=== PATIENT | male | born 1970 | race Caucasian/White ===

== ENCOUNTER 2016-11-02 03:28 | Inpatient (IN) | payer OTHER ==
[2016-11-02] VITALS (9 sets, daily range): BP systolic 125–159; BP diastolic 67–93; PULSE 76–99; RESP 14–18; TEMP 97.6–98.8; O2SAT 93–99
[~2016-11-02] VITALS: Ht 185.4 cm; Wt 64.3 kg
[~2016-11-02 03:28] MED LIST: CEPH500 PO; CLON.1 PO; HYDR-3580 PO; IBUP400 PO; LEVE500 PO; OXYC20 PO; PHEN100 PO; Z.0.WALKERFRONT
[2016-11-02] MEDS ORDERED: SODIUM CHLOR 0.9% 1000 ML INJ 1,000 ML IV SCH (03:36)
[2016-11-02] MEDS ORDERED: CEPH-460 PO (03:40)
[2016-11-02] MEDS ORDERED: DILA100C PO (03:40)
[2016-11-02] MEDS ORDERED: CLON0.1T PO (03:40)
[2016-11-02] MEDS ORDERED: SODIUM CHLORIDE 0.9% FLUSH 5 ML FLUSH IVF PRN (03:45)
--- NOTE | 2016-11-02 03:45 | PD ---
HPI Chief Complaint: Fall Time Seen by Provider: 03:36 Travel History International Travel<30 days: No Contact w/Intl Traveler<30days: No Traveled to known affect area: No History of Present Illness HPI 46-year-old male states he had one beer and had a trip and fall and the ambulance team picked him up off the road. He denies pain but does have blood coming from his right ear. History is limited from patient. PFSH Past Medical History Narrative Medical By records Diminished Hearing: No Seizures: Yes Past Surgical History Narrative Surgical By records Neurologic Surgery: Yes (CRANIOTOMY) Social History Narrative Social History by records Alcohol Use: Yes (3-4 DRINKS/day) Tobacco Use: Yes (1 PPD) Substance Use: No Allergies-Medications (Allergen,Severity, Reaction): Coded Allergies: No Known Allergies (Verified , 11/02/16) Reported Meds & Prescriptions Reported Meds & Active Scripts Active Reported Dilantin (Phenytoin Extended) 100 Mg Cap 300 Mg PO BID Clonidine (Clonidine HCl) 0.1 Mg Tab 0.1 Mg PO TID Keflex (Cephalexin) 500 Mg Cap 500 Mg PO Q8H Review of Systems ROS Limitations: Poor Historian Physical Exam Exam Limitations: Poor Historian Narrative General: 46 y/o patient in no apparent distress Skin: trauma noted with blood coming from right ear without obvious laceration Eyes: Pupils equal NECK: C-collar in place Cardiovascular: Regular rate and rhythm Respiratory: Normal respiratory effort noted, clear to auscultation bilaterally Abdomen: soft, nontender, nondistended Back: No step-offs, midline spine nontender with palpation with logroll Extremities: No pain over main joints Neuro: awake, alert, sensation and motor grossly intact Data Data Last Documented VS Vital Signs Date Time Temp Pulse Resp B/P Pulse Ox O2 Delivery O2 Flow Rate FiO2 11/02/16 03:32 98.0 99 18 148/93 96 Orders Basic Metabolic Panel (Bmp) (11/02/16 03:36) Complete Blood Count With Diff (11/02/16 03:36) Prothrombin Time / Inr (Pt) (11/02/16 03:36) Act Partial Throm Time (Ptt) (11/02/16 03:36) Type And Screen (11/02/16 03:36) Alcohol (Ethanol) (11/02/16 03:36) Chest, Single Ap (11/02/16 03:36) Pelvis, Ap Only (Routine) (11/02/16 03:36) Ct Brain W/O Iv Contrast(Rout) (11/02/16 03:36) Ct Cerv Spine W/O Contrast (11/02/16 03:36) Iv Access Insert/Monitor (11/02/16 03:36) Ecg Monitoring (11/02/16 03:36) Oximetry (11/02/16 03:36) Sodium Chlor 0.9% 1000 Ml Inj (Ns 1000 M (11/02/16 03:36) Sodium Chloride 0.9% Flush (Ns Flush) (11/02/16 03:45) Consult Neurosurgery (11/02/16 ) (Hub Use Only)Inp Phy Cons/Ref (11/02/16 ) Admit Order (Ed Use Only) (11/02/16 05:19) Labs Laboratory Tests Test 11/02/16 03:45 White Blood Count 4.6 TH/MM3 Red Blood Count 4.07 MIL/MM3 Hemoglobin 14.1 GM/DL Hematocrit 40.2 % Mean Corpuscular Volume 98.8 FL Mean Corpuscular Hemoglobin 34.7 PG Mean Corpuscular Hemoglobin 35.1 % Concent Red Cell Distribution Width 14.3 % Platelet Count 171 TH/MM3 Mean Platelet Volume 7.7 FL Neutrophils (%) (Auto) 44.6 % Lymphocytes (%) (Auto) 31.5 % Monocytes (%) (Auto) 18.4 % Eosinophils (%) (Auto) 3.3 % Basophils (%) (Auto) 2.2 % Neutrophils # (Auto) 2.1 TH/MM3 Lymphocytes # (Auto) 1.5 TH/MM3 Monocytes # (Auto) 0.9 TH/MM3 Eosinophils # (Auto) 0.2 TH/MM3 Basophils # (Auto) 0.1 TH/MM3 CBC Comment DIFF FINAL Differential Comment Prothrombin Time 10.0 SEC Prothromb Time International 0.9 RATIO Ratio Activated Partial 25.7 SEC Thromboplast Time Sodium Level 139 MEQ/L Potassium Level 3.7 MEQ/L Chloride Level 101 MEQ/L Carbon Dioxide Level 28.9 MEQ/L Anion Gap 9 MEQ/L Blood Urea Nitrogen 5 MG/DL Creatinine 0.64 MG/DL Estimat Glomerular Filtration 135 ML/MIN Rate Random Glucose 88 MG/DL Calcium Level 8.1 MG/DL Ethyl Alcohol Level 333 MG/DL MDM Medical Decision Making Medical Screen Exam Complete: Yes Emergency Medical Condition: Yes Medical Record Reviewed: Yes (past history confirmed) Interpretation(s) CBC & BMP Diagram 11/02/16 03:45 Last 24 hours Impressions Pelvis X-Ray 11/02/16335 Signed Impressions: Service Date/Time: October 03:56 - CONCLUSION: Negative trauma study. Pedro Pablo Lion MD Head CT 11/02/16335 Signed Impressions: Service Date/Time: October 03:47 - CONCLUSION: 1. New small area of high density hemorrhage in the left parietal lobe with no mass effect. 2. Post surgical changes and encephalomalacia in the right frontal and left temporal lobe. Pedro Pablo Lion MD Chest X-Ray 11/02/16335 Signed Impressions: Service Date/Time: October 03:52 - CONCLUSION: No acute disease. Pedro Pablo Lion MD Cervical Spine CT 11/02/16335 Signed Impressions: Service Date/Time: October 03:47 - CONCLUSION: 1. No acute fracture. 2. Stable mild retrolisthesis of C5 on C6 with degenerative disc change at this level. Pedro Pablo Lion MD Differential Diagnosis Intracranial bleed, skull fracture, strain Narrative Course Will check blood work, trauma imaging and reevaluate ed workup with clinical basilar skull fracture with bleeding from right ear, small bleed on CT brain will discuss with neurosurgery Patient updated and agrees to admission Physician Communication Physician Communication dr [facility] and will follow as consult dr benítez agrees to admit Diagnosis Primary Impression: Intracranial hemorrhage Additional Impressions: Basilar skull fracture Qualified Code: S02.101A - Closed fracture of right side of base of skull, initial encounter Alcohol intoxication Qualified Code: F10.120 - Alcohol intoxication, uncomplicated Admitting Information Admitting Physician Requests: Admit Aby Higginbotham MD Nov 02, 2016 03:45
--- NOTE | 2016-11-02 04:06 | RADRPT ---
EXAM DATE/TIME: 11/02/2016 03:47 [facility] COMPARISON: CT BRAIN W/O CONTRAST, March 19, 2016, 8:31. INDICATIONS : Fell backwards, cephalgia.. History of intracranial hemorrhage 6 months ago. RADIATION DOSE: 32.33 CTDIvol (mGy) MEDICAL HISTORY : Seizures. SURGICAL HISTORY : Craniotomy. ENCOUNTER: Initial ACUITY: 1 day PAIN SCALE: 1/10 LOCATION: occipital TECHNIQUE: Multiple contiguous axial images were obtained of the head. Using automated exposure control and adjustment of the mA and/or kV according to patient size, radiation dose was kept as low as reasonably achievable to obtain optimal diagnostic quality images. FINDINGS: CEREBRUM: The ventricles are normal for age. No evidence of midline shift, mass lesion, or acute infarction. On image #7 there is a small focal area of high density apparent intraparenchymal hemorr colt in the left temporal lobe measuring approximately 8 x 8 mm in size. There is no edema or mass ef fect. There are stable areas of encephalomalacia in the right frontal and left temporal lobes. The pr evious noted areas of hemorrhage have resolved. No extra-axial fluid collections are seen. POSTERIOR FOSSA: The cerebellum and brainstem are intact. The 4th ventricle is midline. The cer ebellopontine angle is unremarkable. EXTRACRANIAL: The visualized portion of the orbits is intact. SKULL: The calvaria is intact. No evidence of skull fracture. There is soft tissue swelling over the right parietal bone. Postsurgical changes are noted status post right temporal parietal cranioto my. CONCLUSION: 1. New small area of high density hemorrhage in the left parietal lobe with no mass effect. 2. Post surgical changes and encephalomalacia in the right frontal and left temporal lobe. Pedro Pablo Lion MD on November 02, 2016 at 3:59 Board Certified Radiologist. This report was verified electronically.
--- NOTE | 2016-11-02 04:09 | RADRPT ---
EXAM DATE/TIME: 11/02/2016 03:47 [facility] COMPARISON: CT CERVICAL SPINE W/O CONTRAST, March 15, 2016, 21:41. INDICATIONS : Fell backwards, neck pain. RADIATION DOSE: 20.45 CTDIvol (mGy) MEDICAL HISTORY : Seizures. SURGICAL HISTORY : Craniotomy. ENCOUNTER: Initial ACUITY: 1 day PAIN SCALE: 1/10 LOCATION: neck TECHNIQUE: Volumetric scanning of the cervical spine was performed. Multiplanar reconstructions i n the sagittal, coronal and oblique axial planes were performed. Using automated exposure control a nd adjustment of the mA and/or kV according to patient size, radiation dose was kept as low as reason ably achievable to obtain optimal diagnostic quality images. FINDINGS: The sagittal reconstructions demonstrate that the vertebral bodies are intact and there is normal pre vertebral soft tissues. The dens is intact and there is a normal atlantoaxial relationship. There is mild retrolisthesis of C5 on C6 again noted approximately 3 mm. The axial images demonstrate that the vertebral bodies and posterior elements are intact. The soft ti ssues are within normal limits. There is no evidence of acute fracture or malalignment. CONCLUSION: 1. No acute fracture. 2. Stable mild retrolisthesis of C5 on C6 with degenerative disc change at this level. Pedro Pablo Lion MD on November 02, 2016 at 4:05 Board Certified Radiologist. This report was verified electronically.
[2016-11-02 04:18] LABS: AUTOMATED NEUTROPHIL # 2.1 TH/MM3 (1.8-7.7); BASOPHIL # 0.1 TH/MM3 (0-0.2); BASOPHIL % 2.2 % (0.0-2.0); EOSINOPHIL # 0.2 TH/MM3 (0-0.4); EOSINOPHIL % 3.3 % (0.0-4.0); HEMATOCRIT 40.2 % (39.0-51.0); HEMO FLAGS DIFF FINAL; LYMPH % 31.5 % (9.0-44.0); LYMPHOCYTE # 1.5 TH/MM3 (1.0-4.8); MEAN CELL VOLUME 98.8 FL (80.0-100.0); MEAN CORPUSCULAR HEMOGLOBIN 34.7 PG (27.0-34.0); MEAN CORPUSCULAR HGB CONC 35.1 % (32.0-36.0); MONO % 18.4 % (0.0-8.0); NEUT % 44.6 % (16.0-70.0); PLATELET COUNT 171 TH/MM3 (150-450); RED BLOOD COUNT 4.07 MIL/MM3 (4.50-5.90); RED CELL DISTRIBUTION WIDTH 14.3 % (11.6-17.2); WHITE BLOOD COUNT 4.6 TH/MM3 (4.0-11.0)
[2016-11-02 04:30] LABS: APTT (PATIENT) 25.7 SEC (24.3-30.1); INTERNATIONAL NORMALIZED RATIO 0.9 RATIO
[2016-11-02 04:31] LABS: BICARBONATE 28.9 MEQ/L (21.0-32.0); POTASSIUM 3.7 MEQ/L (3.5-5.1)
--- NOTE | 2016-11-02 04:46 | RADRPT ---
EXAM DATE/TIME: 11/02/2016 03:52 [facility] COMPARISON: CHEST SINGLE AP, March 16, 2016, 5:36. INDICATIONS : Patient states he fell, syncope. MEDICAL HISTORY : None. SURGICAL HISTORY : None. ENCOUNTER: Initial ACUITY: 1 day PAIN SCORE: 0/10 LOCATION: Bilateral chest FINDINGS: A single view of the chest demonstrates the lungs to be symmetrically aerated without evidence of mas s, infiltrate or effusion. The cardiomediastinal contours are unremarkable. Osseous structures are intact. CONCLUSION: No acute disease. Pedro Pablo Lion MD on November 02, 2016 at 4:44 Board Certified Radiologist. This report was verified electronically.
--- NOTE | 2016-11-02 04:47 | RADRPT ---
EXAM DATE/TIME: 11/02/2016 03:56 [facility] COMPARISON: No previous studies available for comparison. INDICATIONS : Patient states he fell, pelvic pain. MEDICAL HISTORY : None. SURGICAL HISTORY : None. ENCOUNTER: Initial ACUITY: 1 day PAIN SCORE: 0/10 LOCATION: Bilateral Pelvis FINDINGS: A single frontal view of the pelvis demonstrates no evidence of fracture. The bony pelvic ring is in tact. Bony mineralization is normal. The soft tissues are intact. CONCLUSION: Negative trauma study. Pedro Pablo Lion MD on November 02, 2016 at 4:45 Board Certified Radiologist. This report was verified electronically.
[2016-11-02] MEDS ORDERED: ONDANSETRON HCL 4 MG/2 ML VIAL IVP PRN (07:15)
[2016-11-02] MEDS ORDERED: SODIUM CHLORIDE 0.9% FLUSH 5 ML FLUSH FLUSH PRN (07:15)
[2016-11-02] MEDS ORDERED: LORazepam 2 MG/ML VIAL IV PUSH PRN ×7 (07:15→17:00)
[2016-11-02] MEDS ORDERED: LORazepam 1 MG TAB PO PRN ×2 (07:15→13:45)
[2016-11-02] MEDS ORDERED: NALOXONE HCL 0.4 MG/ML AMP IV PRN (07:15)
[2016-11-02] MEDS ORDERED: FLUMAZENIL 1 MG/10 ML VIAL IV PUSH PRN ×2 (07:15→13:45)
--- NOTE | 2016-11-02 08:24 | HHI.HP ---
HPI Service [facility] Primary Care Physician No Primary Care Physician Admission Diagnosis intracranial bleed, alcohol intoxication Diagnoses: Chief Complaint: fall, headache, bleeding from right ear Travel History International Travel<30 Days: No Contact w/Intl Traveler <30 Da: No Traveled to Known Affected Are: No History of Present Illness 46 yo male with PMH of seizures, EtOH use, noncompliant with meds and follow up says due to lack of insurance. States he had a beer and a shot od hard liquer last night and on the way home he did fall on the street. He did manage to call 911 and paramedics came. Says he did not lose consciousness during or after the incident, no loss of bladder or bowels. Says he had similar previous episodes, one time years ago he did fall and had a large right side laceration. Denies tremors/ seizure activity. No lightheadedness, palpitations, n/v/d/c. Says paramedics told him he is bleeding from his right ear. Says she does have a h/o seizure, takes meds and says he is fairly compliant, however he doesn't have insurance and runs out of meds. No change in vision sensory or motor deficit. Note patient has a EtOH odor breath. Review of Systems Constitutional: DENIES: Fever, Chills, Change in appetite Endocrine: DENIES: Heat/cold intolerance Eyes: DENIES: Blurred vision, Eye pain Ears, nose, mouth, throat: DENIES: Tinnitus, Hearing loss, Vertigo, Nasal discharge, Oral lesions, Throat pain, Hoarseness, Ear Pain, Running Nose, Epistaxis, Sinus Pain, Toothache, Odynophagia Respiratory: DENIES: Apneas, Cough, Snoring, Wheezing, Hemoptysis, Sputum production, Shortness of breath Cardiovascular: DENIES: Chest pain, Palpitations, Syncope, Dyspnea on Exertion , PND, Lower Extremity Edema, Orthopnea, Claudication Gastrointestinal: DENIES: Abdominal pain, Black stools, Bloody stools, Constipation, Diarrhea, Nausea, Vomiting, Difficulty Swallowing, Anorexia Genitourinary: DENIES: Sexual dysfunction, Urinary frequency, Urinary incontinence, Urgency, Hematuria, Dysuria, Nocturia, Penile Discharge, Testicular Pain, Testicular Swelling Musculoskeletal: DENIES: Joint pain, Muscle aches, Stiffness, Joint Swelling, Back pain, Neck pain Integumentary: DENIES: Rash Neurologic: DENIES: Abnormal gait, Headache, Localized weakness, Paresthesias, Seizures, Speech Problems, Tremor, Poor Balance Psychiatric: DENIES: Anxiety, Depression Past Family Social History Past Medical History seizure, multiple falls EtOH use Past Surgical History Right scalp laceration repair Reported Medications Reported Meds & Active Scripts Active Reported Dilantin (Phenytoin Extended) 100 Mg Cap 300 Mg PO BID Clonidine (Clonidine HCl) 0.1 Mg Tab 0.1 Mg PO TID Keflex (Cephalexin) 500 Mg Cap 500 Mg PO Q8H Allergies: Coded Allergies: No Known Allergies (Verified , 11/02/16) Family History Parents and siblings alive and healthy Social History Tobacco use 1/2 PPD "since the [place] war" EtOH 2-3 beers occasional hard liquer Denies illicit drug use Physical Exam Vital Signs Vital Signs Date Time Temp Pulse Resp B/P Pulse Ox O2 Delivery O2 Flow Rate FiO2 11/02/16 06:32 97 14 125/71 95 Room Air 11/02/16 03:32 98.0 99 18 148/93 96 Physical Exam GENERAL: This is a well-nourished, well-developed patient, in no apparent distress. SKIN: No rashes, ecchymoses or lesions. Cool and dry. HEAD: Atraumatic. Normocephalic. No temporal or scalp tenderness. EYES: Pupils equal round and reactive. Extraocular motions intact. No scleral icterus. No injection or drainage. ENT: Nose without bleeding, purulent drainage or septal hematoma. Throat without erythema, tonsillar hypertrophy or exudate. Uvula midline. Airway patent. NECK: Trachea midline. No JVD or lymphadenopathy. Supple, nontender, no meningeal signs. CARDIOVASCULAR: Regular rate and rhythm without murmurs, gallops, or rubs. RESPIRATORY: Clear to auscultation. Breath sounds equal bilaterally. No wheezes , rales, or rhonchi. GASTROINTESTINAL: Abdomen soft, non-tender, nondistended. No hepato-splenomegaly , or palpable masses. No guarding. MUSCULOSKELETAL: Extremities without clubbing, cyanosis, or edema. No joint tenderness, effusion, or edema noted. No calf tenderness. Negative Homans sign bilaterally. NEUROLOGICAL: Awake and alert. Cranial nerves II through XII intact. Motor and sensory grossly within normal limits. Five out of 5 muscle strength in all muscle groups. Normal speech. Laboratory Laboratory Tests Test 11/02/16 03:45 White Blood Count 4.6 Red Blood Count 4.07 Hemoglobin 14.1 Hematocrit 40.2 Mean Corpuscular Volume 98.8 Mean Corpuscular Hemoglobin 34.7 Mean Corpuscular Hemoglobin 35.1 Concent Red Cell Distribution Width 14.3 Platelet Count 171 Mean Platelet Volume 7.7 Neutrophils (%) (Auto) 44.6 Lymphocytes (%) (Auto) 31.5 Monocytes (%) (Auto) 18.4 Eosinophils (%) (Auto) 3.3 Basophils (%) (Auto) 2.2 Neutrophils # (Auto) 2.1 Lymphocytes # (Auto) 1.5 Monocytes # (Auto) 0.9 Eosinophils # (Auto) 0.2 Basophils # (Auto) 0.1 CBC Comment DIFF FINAL Differential Comment Prothrombin Time 10.0 Prothromb Time International 0.9 Ratio Activated Partial 25.7 Thromboplast Time Sodium Level 139 Potassium Level 3.7 Chloride Level 101 Carbon Dioxide Level 28.9 Anion Gap 9 Blood Urea Nitrogen 5 Creatinine 0.64 Estimat Glomerular Filtration 135 Rate Random Glucose 88 Calcium Level 8.1 Ethyl Alcohol Level 333 Result Diagram: 11/02/1634411/02/16344 Imaging Last Impressions Pelvis X-Ray 11/02/16335 Signed Impressions: Service Date/Time: October 03:56 - CONCLUSION: Negative trauma study. Pedro Pablo Lion MD Head CT 11/02/16335 Signed Impressions: Service Date/Time: October 03:47 - CONCLUSION: 1. New small area of high density hemorrhage in the left parietal lobe with no mass effect. 2. Post surgical changes and encephalomalacia in the right frontal and left temporal lobe. Pedro Pablo Lion MD Chest X-Ray 11/02/16335 Signed Impressions: Service Date/Time: October 03:52 - CONCLUSION: No acute disease. Pedro Pablo Lion MD Cervical Spine CT 11/02/16335 Signed Impressions: Service Date/Time: October 03:47 - CONCLUSION: 1. No acute fracture. 2. Stable mild retrolisthesis of C5 on C6 with degenerative disc change at this level. Pedro Pablo Lion MD Assessment and Plan Assessment and Plan 46 yo male with PMH of seizure, multiple falls, EtOH use Fall Right Otorrhagia Left parietal lobe with small hemorrhage H/o seizures taking dilantin at home CT head: 1. New small area of high density hemorrhage in the left parietal lobe with no mass effect. 2. Post surgical changes and encephalomalacia in the right frontal and left temporal lobe. Consult Dr Boyer, neurosurgery Check carotid US Check 2D ECHO Check EEG Start CIWA protocol Check dilantin level DVT ppx with SCD/TEDs , chemical ppx CI as patient with IC Hgg Code Status full Discussed Condition With patient, nurse, ED physician Physician Certification 2 Midnight Certification Type: Admission for Inpatient Services Order for Inpatient Services The services are ordered in accordance with Medicare regulations or non- Medicare payer requirements, as applicable. In the case of services not specified as inpatient-only, they are appropriately provided as inpatient services in accordance with the 2-midnight benchmark. Estimated LOS (days): 3 days is the estimated time the patient will need to remain in the hospital, assuming treatment plan goals are met and no additional complications. Post-Hospital Plan: Home Chanell Worthy MD Nov 02, 2016 08:24
[2016-11-02] MEDS ORDERED: SODIUM CHLORIDE 0.9% FLUSH 5 ML FLUSH FLUSH SCH (09:00)
[2016-11-02] MEDS: SODIUM CHLORIDE 0.9% FLUSH 5 ML FLUSH IV FLUSH SCH ×2 (09:46→21:00)
[2016-11-02] MEDS: THIAMINE HCL 100 MG TAB PO SCH (09:48)
--- NOTE | 2016-11-02 09:54 | PD.CONS ---
(Ellen Gaona) HPI Consult Requested By Dr. Higginbotham Reason for Consult Intracranial bleed, basal skull fracture Primary Care Physician No Primary Care Physician History of Present Illness Mr. Blake is a 46-year-old male who presents to [facility] ED following a fall. Apparently he was drinking last night and fell. He was reported to had called EMS and was found to be bleeding from the right ear. He denies loss of consciousness, tongue biting, seizure like activities, or loss of bladder control. He does have a history of seizures and is on Dilantin. A CT of the brain shows an acute left temporal contusion. He complains of some headaches. He denies focal weakness, double vision, sensory loss, vomiting. Toxicology shows a high alcohol level of 333. Neurosurgical evaluation was requested for evaluation of intracerebral hemorrhage. (Ellen Gaona) Review of Systems Constitutional: DENIES: Fever, Chills Eyes: DENIES: Vision loss Cardiovascular: DENIES: Chest pain Genitourinary: DENIES: Urinary incontinence Musculoskeletal: DENIES: Neck pain Neurologic: COMPLAINS OF: Headache, DENIES: Seizures (Ellen Goana) Past Family Social History Allergies: Coded Allergies: No Known Allergies (Verified , 11/02/16) Past Medical History seizures Hypertension Past Surgical History remote right craniotomy per CT Head results Reported Medications Dilantin (Phenytoin Extended) 100 Mg Cap 300 Mg PO BID Clonidine (Clonidine HCl) 0.1 Mg Tab 0.1 Mg PO TID Keflex (Cephalexin) 500 Mg Cap 500 Mg PO Q8H Active Ordered Medications Current Medications Medications (Trade) Dose Ordered Sig/Marely Route PRN Reason Start Time Stop Time Status Last Admin Dose Admin IV Flush (NS Flush) 2 ml UNSCH PRN FLUSH FLUSH AFTER USING IV ACCESS 11/02/16 07:15 IV Flush (NS Flush) 2 ml BID FLUSH 11/02/16 09:00 11/02/16 09:45 Ondansetron HCl (Zofran Inj) 4 mg Q6H PRN IVP NAUSEA OR VOMITING 12/29/16 07:15 Naloxone HCl (Narcan Inj) 0.4 mg UNSCH PRN IV SEE LABEL COMMENTS 11/02/16 07:15 IV Flush (NS Flush) 2 ml UNSCH PRN IV FLUSH FLUSH AFTER USING IV ACCESS 11/02/16 07:15 IV Flush (NS Flush) 2 ml BID IV FLUSH 11/02/16 09:00 11/02/16 09:46 Flumazenil (Romazicon Inj) 0.2 mg Q1M PRN IV PUSH SEE LABEL COMMENTS 11/02/16 07:15 Lorazepam (Ativan) 1 mg Q4H PRN PO CIWA 8 - 10 11/02/16 07:15 Lorazepam (Ativan Inj) 1 mg Q4H PRN IV PUSH CIWA 8 - 10 11/02/16 07:15 Lorazepam (Ativan) 2 mg Q2H PRN PO CIWA 11-14 11/02/16 07:15 Lorazepam (Ativan Inj) 2 mg Q2H PRN IV PUSH CIWA 11-14 11/02/16 07:15 Lorazepam (Ativan Inj) 2 mg Q1H PRN IV PUSH CIWA 15-20 11/02/16 07:15 Lorazepam (Ativan Inj) 2 mg Q15M PRN IV PUSH CIWA > 20 11/02/16 07:15 Thiamine HCl (Vitamin B1) 100 mg DAILY PO 11/02/16 09:00 11/02/16 09:48 Family History Noncontributory Social History Tobacco 1/2 PPD EtOH abuse denies illicit drug use (Ellen Gaona) Physical Exam Vital Signs Vital Signs Date Time Temp Pulse Resp B/P Pulse Ox O2 Delivery O2 Flow Rate FiO2 11/02/16 07:00 98.4 88 16 134/77 99 Room Air 11/02/16 07:00 Room Air 11/02/16 06:32 97 14 125/71 95 Room Air 11/02/16 03:32 98.0 99 18 148/93 96 Physical Exam Mr. Liao is alert, oriented to name and place. Follows commands. Cranial nerve examination demonstrates the pupils to be equal, round, and reactive to light. Extra-ocular movements are intact. Facial motor are normal and symmetrical. The uvula is midline and elevates symmetrically with the soft palate. Sternocleidomastoid and trapezius muscles have normal and symmetrical strength. Old dried blood noted in right ear, no active drainage seen. Neck is soft and supple. Cervical spine has good range of motion in anterior flexion, extension, lateral bending, and rotation with mild discomfort. Muscle testing reveals normal bulk and tone overall without rigidity, spasticity , fasciculations, or atrophy. 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 In the lower extremities, strength is 5/5 in both iliopsoas, quadriceps, hamstrings, plantar flexion, dorsiflexion. Sensory examination is intact to light touch in both the upper and lower extremities, symmetrically. Deep tendon reflexes are 2+ and symmetrical in the biceps, triceps, and brachioradialis, bilaterally, in the upper extremities. In the lower extremities , the patellar and Achilles are 2+, bilaterally. There is a bilateral plantar flexion response. Hoffmanns sign is negative. There is no clonus or other abnormal reflexes noted. Cerebellar examination is intact to [id number] test. Laboratory Laboratory Tests Test 11/02/16 11/02/16 03:45 07:36 White Blood Count 4.6 Red Blood Count 4.07 Hemoglobin 14.1 Hematocrit 40.2 Mean Corpuscular Volume 98.8 Mean Corpuscular Hemoglobin 34.7 Mean Corpuscular Hemoglobin 35.1 Concent Red Cell Distribution Width 14.3 Platelet Count 171 Mean Platelet Volume 7.7 Neutrophils (%) (Auto) 44.6 Lymphocytes (%) (Auto) 31.5 Monocytes (%) (Auto) 18.4 Eosinophils (%) (Auto) 3.3 Basophils (%) (Auto) 2.2 Neutrophils # (Auto) 2.1 Lymphocytes # (Auto) 1.5 Monocytes # (Auto) 0.9 Eosinophils # (Auto) 0.2 Basophils # (Auto) 0.1 CBC Comment DIFF FINAL Differential Comment Prothrombin Time 10.0 Prothromb Time International 0.9 Ratio Activated Partial 25.7 Thromboplast Time Sodium Level 139 Potassium Level 3.7 Chloride Level 101 Carbon Dioxide Level 28.9 Anion Gap 9 Blood Urea Nitrogen 5 Creatinine 0.64 Estimat Glomerular Filtration 135 Rate Random Glucose 88 Calcium Level 8.1 Ethyl Alcohol Level 333 Blood Type B NEGATIVE Antibody Screen NEGATIVE Blood Bank Comment (Ellen Gaona) Result Diagram: 11/02/1634411/02/16344 Imaging Last Impressions Pelvis X-Ray 11/02/16335 Signed Impressions: Service Date/Time: October 03:56 - CONCLUSION: Negative trauma study. Pedro Pablo Lion MD Head CT 11/02/16335 Signed Impressions: Service Date/Time: October 03:47 - CONCLUSION: 1. New small area of high density hemorrhage in the left parietal lobe with no mass effect. 2. Post surgical changes and encephalomalacia in the right frontal and left temporal lobe. Pedro Pablo Lion MD Chest X-Ray 11/02/16335 Signed Impressions: Service Date/Time: October 03:52 - CONCLUSION: No acute disease. Pedro Pablo Lion MD Cervical Spine CT 11/02/16335 Signed Impressions: Service Date/Time: October 03:47 - CONCLUSION: 1. No acute fracture. 2. Stable mild retrolisthesis of C5 on C6 with degenerative disc change at this level. Pedro Pablo Lion MD (Ellen Gaona) Attending Statement Neuro. I have reviewed his clinical and radiological findings. Start neuro checks in a serial fashion. A placement of a ICP monitoring is not indicated at this time Recommend to repeat the CT of the brain in 24 hours ETOH. counseled Respiratory. Aggressive pulmonary toilette, nasotracheal suction, and breathing treatments with nebulizers. PT and OT evaluation Nutrition. NPO Hx Seizures. Continue anticonvulsants. Check dilantin level Renal. monitor closely urine output, BUN and creatinine Endocrine. Monitor serial Acu checks and SSI as needed in detail ID monitor for signs of infection Protonix for stress ulcer prophylaxis Jean hose and SCD's for DVT prophylaxis (Narayan Boyer MD) Ellen Gaona Nov 02, 2016 09:54 Narayan Boyer MD Nov 02, 2016 18:03
[2016-11-02] MEDS ORDERED: SODIUM CHLORIDE 0.9% FLUSH 5 ML FLUSH IV FLUSH PRN (13:45)
[2016-11-02] MEDS ORDERED: LORazepam 2 MG TAB PO PRN (13:45)
[2016-11-02] MEDS ORDERED: cloNIDine HCL 0.1 MG TAB PO PRN (13:45)
[2016-11-02] MEDS ORDERED: PHENYTOIN SODIUM 100 MG CAP PO ONE (15:45)
--- NOTE | 2016-11-02 16:16 | RADRPT ---
EXAM DATE/TIME: 11/02/2016 16:01 [facility] COMPARISON: CT BRAIN W/O CONTRAST, November 02, 2016, 3:47. INDICATIONS : Follow-up intracranial bleed, altered mental status and seizure. RADIATION DOSE: 35.45 CTDIvol (mGy) MEDICAL HISTORY : Seizures. SURGICAL HISTORY : Craniotomy. ENCOUNTER: Subsequent ACUITY: 1 day PAIN SCALE: Non-responsive LOCATION: cranial TECHNIQUE: Multiple contiguous axial images were obtained of the head. Using automated exposure control and adj ustment of the mA and/or kV according to patient size, radiation dose was kept as low as reasonably a chievable to obtain optimal diagnostic quality images. FINDINGS: The cuboid products in the left middle cranial fossa that are either within or adjacent to the left t emporal lobe are stable. However, there are increased blood products along the left tentorium cerebel li and there are new acute blood products along the interhemispheric fissure posteriorly measuring up to a maximal thickness of 6 mm. There is a possible small left frontal subdural hematoma measuring 2 mm in maximal thickness. Stable encephalomalacia is present within the left temporal lobe and right frontal lobe. No midline shift or herniation is present. Ventricles are stable and normal in size. Th ere has been prior right frontal craniotomy. Stable right posterior scalp soft tissue swelling. CONCLUSION: 1. New subdural blood products are present along the interhemispheric fissure and along the left tent orium cerebelli. The left temporal region blood products in the middle cranial fossa are stable and c ould be either intraparenchymal or extra-axial. 2. Possible small left frontal subdural hematoma measuring 2 mm in maximal thickness. Overall, there is no midline shift or herniation. Syd Scott MD on November 02, 2016 at 16:09 Board Certified Radiologist. This report was verified electronically.
[2016-11-02] MEDS ORDERED: FOSPHENYTOIN INJ 1,000 MGPE in SODIUM CHLORIDE 0.9% INJ 50 ML IV ONE (18:00)
[2016-11-02] MEDS: cloNIDine HCL 0.1 MG TAB PO SCH (18:13)
--- NOTE | 2016-11-02 18:37 | MB ---
cc: UDAY BALLARD DATE OF CONSULTATION: 11/02/2016. REASON FOR CONSULTATION: Seizure. HISTORY OF PRESENT ILLNESS: Mr. Hammond is a 46-year-old man who has a history of seizures in the past, alcohol abuse and apparently noncompliant with medications. He takes Dilantin at home but states he has been missing doses. Last night he was drinking heavily. He fell on the street and was brought to the hospital by the paramedics. He was found to have on CT scan, a subdural hematoma along the inter-hemispheric fissure, left tentorium cerebella, left temporal region and the middle cranial fossa as well as small left frontal subdural hematoma measuring 2 mm with no mass effect. CT scan also showed left parietal hematoma. The patient had a witnessed generalized tonic clonic seizure her in the emergency room today. His dilantin level on admission was 1.8. NEUROLOGICAL EXAMINATION: VITAL SIGNS: Blood pressure is 129/67, pulse 76, respirations 16, temperature 98 degrees. HIGHER CORTICAL FUNCTIONS: He is postictal at the present time and very lethargic but arousable, disoriented, follows simple commands. CRANIAL NERVES: The pupils are 2 mm symmetric and reactive. Extraocular movements are intact. MOTOR: On motor exam, he has no focal deficits but he has generalized weakness. LABS: Dilantin level 1.8. Alcohol level 333. White count 4600, hemoglobin 14.1, hematocrit 40%, platelet count 171,000. PT 10. INR 0.9. APTT 25.7. Sodium is 139, potassium 3.7, chloride 101, carbon dioxide 28.9, BUN is 5, creatinine 0.64, GFR is 135, glucose 88. IMPRESSION: 1. Posttraumatic subdural hematoma as well as what appears to be left parietal contusion. 2. Seizure disorder and recurrent seizures. Subtherapeutic dilantin. RECOMMENDATIONS: 1. I will start the patient on Cerebyx after giving a loading dose of 1000 [address] him under seizure precautions. 3. Use PRN Ativan for any recurrent seizures. 4. Obtain an EEG. MD SATURNINO Griggs/BENITA /4:56 PM 6:30 PM
[2016-11-02] MEDS ORDERED: SODIUM CHLORIDE 0.9% FLUSH 5 ML FLUSH IV FLUSH SCH (21:00)
[2016-11-02] MEDS ORDERED: RANITIDINE HCL 150 MG TAB PO SCH (21:00)
[2016-11-02] MEDS ORDERED: PHENYTOIN SODIUM 100 MG CAP PO SCH (21:00)
[2016-11-02] MEDS: FOSPHENYTOIN SODIUM 100 MG PE/2 ML VIAL IV SCH (22:10)
[2016-11-03] VITALS (8 sets, daily range): BP systolic 114–124; BP diastolic 74–87; PULSE 75–80; RESP 14–18; TEMP 97.2–99.2; O2SAT 94–97
[2016-11-03] MEDS: FOSPHENYTOIN SODIUM 100 MG PE/2 ML VIAL IV SCH ×2 (05:50→12:52)
[2016-11-03 06:58] LABS: AUTOMATED NEUTROPHIL # 5.4 TH/MM3 (1.8-7.7); BASOPHIL % 0.6 % (0.0-2.0); EOSINOPHIL # 0.1 TH/MM3 (0-0.4); EOSINOPHIL % 1.2 % (0.0-4.0); HEMATOCRIT 40.5 % (39.0-51.0); HEMO FLAGS DIFF FINAL; LYMPH % 14.5 % (9.0-44.0); LYMPHOCYTE # 1.1 TH/MM3 (1.0-4.8); MEAN CELL VOLUME 98.3 FL (80.0-100.0); MEAN CORPUSCULAR HGB CONC 34.6 % (32.0-36.0); MONO % 11.9 % (0.0-8.0); NEUT % 71.8 % (16.0-70.0); PLATELET COUNT 151 TH/MM3 (150-450); RED BLOOD COUNT 4.12 MIL/MM3 (4.50-5.90); RED CELL DISTRIBUTION WIDTH 13.8 % (11.6-17.2); WHITE BLOOD COUNT 7.6 TH/MM3 (4.0-11.0)
[2016-11-03 07:35] LABS: POTASSIUM 3.1 MEQ/L (3.5-5.1)
[2016-11-03] MEDS ORDERED: THIAMINE HCL 100 MG TAB PO SCH (09:00)
[2016-11-03] MEDS: THIAMINE HCL 200 MG/2 ML VIAL IM SCH ×2 (09:00→10:02)
--- NOTE | 2016-11-03 09:20 | RADRPT ---
EXAM DATE/TIME: 11/03/2016 09:04 [facility] COMPARISON: CT BRAIN W/O CONTRAST, November 02, 2016, 16:01. CT BRAIN W/O CONTRAST, November 02, 2016, 3:47. INDICATIONS : Follow up intracerebral hemorrhage. RADIATION DOSE: 38.18 CTDIvol (mGy) MEDICAL HISTORY : Seizures. SURGICAL HISTORY : Craniotomy ENCOUNTER: Initial ACUITY: 1 day PAIN SCALE: 0/10 LOCATION: cranial TECHNIQUE: Multiple contiguous axial images were obtained of the head. Using automated exposure control and adj ustment of the mA and/or kV according to patient size, radiation dose was kept as low as reasonably a chievable to obtain optimal diagnostic quality images. FINDINGS: Examination appears stable. There is evidence of prior remote right temporoparietal craniotomy. Encep halomalacia changes in the left temporal lobe are appreciated with increased density along the left t entorium interhemispheric fissure towards the vertex in the parietal region and a stable area of ence phalomalacia in the parafalcine anterior right frontal lobe. Question as to 2 mm left frontal subdura l hematoma is again raised. There is no evidence of midline shift or mass effect a nd no evidence of herniation. CONCLUSION: Stable CT brain scan Oseas Chandler MD on November 03, 2016 at 9:15 Board Certified Radiologist. This report was verified electronically.
[2016-11-03] MEDS: cloNIDine HCL 0.1 MG TAB PO SCH ×3 (10:01→17:06)
[2016-11-03] MEDS: MULTIVITAMINS/MINERALS THERAPEUTIC TAB PO SCH (10:02)
[2016-11-03] MEDS: THIAMINE HCL 100 MG TAB PO SCH (10:02)
[2016-11-03] MEDS: SODIUM CHLORIDE 0.9% FLUSH 5 ML FLUSH IV FLUSH SCH ×2 (10:03→22:17)
[2016-11-03] MEDS ORDERED: POTASSIUM CHLORIDE 10 MEQ CONTROLLED RELEASE TAB PO ONE (10:15)
--- NOTE | 2016-11-03 14:26 | HHI.PR ---
Subjective Remarks The patient was seen earlier today. He appears in nad. Had a seizure yesterday. No seizures since yesterday. No tremors. Denies headache, change in vision, motor deficit. No fever or chills. No cp, sob, n/v/d/c. Objective Vitals Vital Signs Date Time Temp Pulse Resp B/P Pulse Ox O2 Delivery O2 Flow Rate FiO2 11/03/16 12:20 98.0 75 18 124/87 94 11/03/16 08:52 99.2 80 18 122/80 95 11/03/16 04:21 98.2 76 16 114/81 96 11/03/16 00:39 97.2 78 16 117/74 97 11/02/16 20:36 97.6 89 16 126/88 98 11/02/16 20:00 82 11/02/16 17:46 98.8 84 18 145/88 93 11/02/16 16:54 108 16 159/88 95 Nasal Cannula 2 11/02/16 15:00 76 16 129/67 95 Nasal Cannula 5 I/O 11/02/16 11/02/16 11/02/16 11/03/16 11/03/16 11/03/16 07:00 15:00 23:00 07:00 15:00 23:00 Intake Total 360 ml Balance 360 ml Intake Oral 360 ml # Voids 4 2 # Bowel Movements 1 Result Diagram: 11/03/16 0633 11/03/16 0633 Imaging Last Impressions Head CT 11/03/16 0600 Signed Impressions: Service Date/Time: Thursday, November 03, 2016 09:04 - CONCLUSION: Stable CT brain scan Oseas Chandler MD Pelvis X-Ray 11/02/16335 Signed Impressions: Service Date/Time: October 03:56 - CONCLUSION: Negative trauma study. Pedro Pablo Lion MD Chest X-Ray 11/02/16335 Signed Impressions: Service Date/Time: October 03:52 - CONCLUSION: No acute disease. Pedro Pablo Lion MD Cervical Spine CT 11/02/16335 Signed Impressions: Service Date/Time: October 03:47 - CONCLUSION: 1. No acute fracture. 2. Stable mild retrolisthesis of C5 on C6 with degenerative disc change at this level. Pedro Pablo Lion MD Objective Remarks GENERAL: This is a well-nourished, well-developed patient, in no apparent distress. SKIN: No rashes, ecchymoses or lesions. Cool and dry. HEAD: Atraumatic. Normocephalic. No temporal or scalp tenderness. EYES: Pupils equal round and reactive. Extraocular motions intact. No scleral icterus. No injection or drainage. ENT: Nose without bleeding, purulent drainage or septal hematoma. Throat without erythema, tonsillar hypertrophy or exudate. Uvula midline. Airway patent. NECK: Trachea midline. No JVD or lymphadenopathy. Supple, nontender, no meningeal signs. CARDIOVASCULAR: Regular rate and rhythm without murmurs, gallops, or rubs. RESPIRATORY: Clear to auscultation. Breath sounds equal bilaterally. No wheezes , rales, or rhonchi. GASTROINTESTINAL: Abdomen soft, non-tender, nondistended. No hepato-splenomegaly , or palpable masses. No guarding. MUSCULOSKELETAL: Extremities without clubbing, cyanosis, or edema. No joint tenderness, effusion, or edema noted. No calf tenderness. Negative Homans sign bilaterally. NEUROLOGICAL: Awake and alert. Cranial nerves II through XII intact. Motor and sensory grossly within normal limits. Five out of 5 muscle strength in all muscle groups. Normal speech. A/P Assessment and Plan 46 yo male with PMH of seizure, multiple falls, EtOH use Fall Right Otorrhagia Left parietal lobe with small hemorrhage H/o seizures taking dilantin at home CT head on admission: 1. New small area of high density hemorrhage in the left parietal lobe with no mass effect. 2. Post surgical changes and encephalomalacia in the right frontal and left temporal lobe. Consult Dr Boyer, neurosurgery Check carotid US Check 2D ECHO Check EEG Start CIWA protocol Check dilantin level subtherapeutic He had seizure yesterday 11/02 . Dilantin level subtherapeutic. Restarted dilantin. Received phosphenytoin IV by neuro, continue. EEG pending. CT head stable/ neurosurgery signed of. DVT ppx with SCD/TEDs , chemical ppx CI as patient with IC Hgg Code Status full Discussed Condition With patient, nurse Discharge Planning Pending improvement, neuro clearance for DC Chanell Worthy MD Nov 03, 2016 14:26
--- NOTE | 2016-11-03 15:00 | MG ---
cc: LATA MARCH Lab No: [id number] Date: Age: Sex: M Race: Hyperventilation and photic stimulation were performed with fair effort. CT shows a hemorrhage in the left parietal lobe. Thiamine, Cerebyx. Diffuse beta rhythms are noted, a little bit more prominent on the right temporal lobe than the left. Photic stimulation is performed. Overall the recording shows a symmetric 8-9 Hz posterior rhythm. IMPRESSION: There are some slightly sharply contoured waves noted on the right temporal lobe occasionally. No spikes are noted. There is a slight asymmetry in the right temporal lobe. I do not see anything on the left temporal or head region. Clinical correlation is needed. MD HANSEL Dubose/BENITA /2:01 PM /2:56 PM
--- NOTE | 2016-11-03 16:45 | HHI.NSPN ---
(Ellen Gaona) Note Status Status: Progress Note (Ellen Gaona) Interval History Interval History Mr. Blake is a 46-year-old male who presents to [place] [facility] ED following a fall. Apparently he was drinking last night and fell. He was reported to had called EMS and was found to be bleeding from the right ear. He denies loss of consciousness, tongue biting, seizure like activities, or loss of bladder control. He does have a history of seizures and is on Dilantin. A CT of the brain shows an acute left temporal contusion. He complains of some headaches. He denies focal weakness, double vision, sensory loss, vomiting. Toxicology shows a high alcohol level of 333. Neurosurgical evaluation was requested for evaluation of intracerebral hemorrhage. 11/03: had seizure yesterday, subtherapeutic dilantin, Neurology consulted, getting EEG. f/u CT Brain completed (Ellen Gaona) Labs, Micro, & Vital Signs Results Date Time Temp Pulse Resp B/P Pulse Ox O2 Delivery O2 Flow Rate FiO2 11/03/16 12:20 98.0 75 18 124/87 94 11/03/16 08:52 99.2 80 18 122/80 95 11/03/16 04:21 98.2 76 16 114/81 96 11/03/16 00:39 97.2 78 16 117/74 97 11/02/16 20:36 97.6 89 16 126/88 98 11/02/16 20:00 82 11/02/16 17:46 98.8 84 18 145/88 93 11/02/16 16:54 108 16 159/88 95 Nasal Cannula 2 Constitutional Vital Signs Date Time Temp Pulse Resp B/P Pulse Ox O2 Delivery O2 Flow Rate FiO2 11/03/16 12:20 98.0 75 18 124/87 94 11/03/16 08:52 99.2 80 18 122/80 95 11/03/16 04:21 98.2 76 16 114/81 96 11/03/16 00:39 97.2 78 16 117/74 97 11/02/16 20:36 97.6 89 16 126/88 98 11/02/16 20:00 82 11/02/16 17:46 98.8 84 18 145/88 93 11/02/16 16:54 108 16 159/88 95 Nasal Cannula 2 (Ellen Gaona) Review of Systems/Exam Exam Mr. Liao is alert, oriented to name and place. Follows commands. Cranial nerve examination demonstrates the pupils to be equal, round, and reactive to light. EOMs intact. Facial motor are normal and symmetrical. The uvula is midline and elevates symmetrically with the soft palate. Old dried blood noted in right ear, no active drainage seen. Neck is soft and supple. 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 In the lower extremities, strength is 5/5 in both iliopsoas, quadriceps, hamstrings, plantar flexion, dorsiflexion. Sensory examination is intact to light touch in both the upper and lower extremities, symmetrically. Cerebellar examination is intact to [id number] test. (Ellen Gaona) Medications Current Medications Current Medications Medications (Trade) Dose Ordered Sig/Marely Route PRN Reason Start Time Stop Time Status Last Admin Dose Admin Ondansetron HCl (Zofran Inj) 4 mg Q6H PRN IVP NAUSEA OR VOMITING 11/02/16 07:15 11/02/16 16:37 Naloxone HCl (Narcan Inj) 0.4 mg UNSCH PRN IV SEE LABEL COMMENTS 11/02/16 07:15 IV Flush (NS Flush) 2 ml UNSCH PRN IV FLUSH FLUSH AFTER USING IV ACCESS 11/02/16 07:15 IV Flush (NS Flush) 2 ml BID IV FLUSH 11/02/16 09:00 11/03/16 10:03 Flumazenil (Romazicon Inj) 0.2 mg Q1M PRN IV PUSH SEE LABEL COMMENTS 11/02/16 07:15 Lorazepam (Ativan) 1 mg Q4H PRN PO CIWA 8 - 10 11/02/16 07:15 Lorazepam (Ativan Inj) 1 mg Q4H PRN IV PUSH CIWA 8 - 10 11/02/16 07:15 Lorazepam (Ativan) 2 mg Q2H PRN PO CIWA 11-14 11/02/16 07:15 Lorazepam (Ativan Inj) 2 mg Q2H PRN IV PUSH CIWA 11-14 11/02/16 07:15 Lorazepam (Ativan Inj) 2 mg Q1H PRN IV PUSH CIWA 15-20 11/02/16 07:15 Lorazepam (Ativan Inj) 2 mg Q15M PRN IV PUSH CIWA > 20 11/02/16 07:15 11/02/16 15:25 Thiamine HCl (Vitamin B1) 100 mg DAILY PO 11/02/16 09:00 11/03/16 10:02 Multivitamins/ Minerals Therapeutic (Theragran M Tab) 1 tab DAILY PO 11/03/16 09:00 11/08/16 08:59 11/03/16 10:02 Clonidine (Catapres) 0.1 mg Q6H PRN PO SEE LABEL COMMENTS 11/02/16 13:45 Clonidine (Catapres) 0.1 mg TID PO 11/02/16 18:00 11/03/16 12:50 Fosphenytoin Sodium (Cerebyx Inj) 100 mgpe Q8HR IV 11/02/16 22:00 11/03/16 12:52 Lorazepam (Ativan Inj) 1 mg Q4H PRN IV PUSH SEIZURES 11/02/16 17:00 Thiamine HCl (Thiamine Inj) 100 mg DAILY IM 11/02/16 17:00 11/04/16 16:59 11/03/16 09:00 Magnesium Oxide (Mag-Ox) 400 mg DAILY PO 11/04/16 09:00 11/08/16 08:59 (Ellen Gaona) Medical Decision Making MDM Remarks 46 year old male s/p fall, etoh intoxication, ICH, stable on f/u CT Brain 11/03 breakthrough seizures, subtherapeutic dilantin (Ellen Gaona) Plan Plan Remarks cont mgt seizures per Neurology nonsurgical management of ICH, cont neuro checks will sign off, call prn (Ellen Gaona) Attending Statement The exam, history, and the medical decision-making described in the above note were completed with the assistance of the mid-level provider. I reviewed and agree with the findings presented. I attest that I had a [id number] encounter with the patient on the same day, and personally performed and documented my assessment and findings in the medical record. (Narayan Boyer MD) Ellen Gaona Nov 03, 2016 16:45 Narayan Boyer MD Nov 04, 2016 22:12
--- NOTE | 2016-11-03 19:00 | HHI.PR ---
Review/Management Diagnosis postraumatic subdural hematoma and contusion seizure--stable on cerebyx. Plan change from iv cerebyx to po dilantin recheck dilantin level in 2-3 days Diagnosis/Plan: Subjective Subjective Comments No acute events reported No recurrent seizure. on cerebyx Active Medications Current Medications Medications (Trade) Dose Ordered Sig/Marely Route Start Time Stop Time Status Last Admin (Zofran Inj) 4 mg Q6H PRN IVP 11/02/16 07:15 11/02/16 16:37 (Narcan Inj) 0.4 mg UNSCH PRN IV 11/02/16 07:15 (NS Flush) 2 ml UNSCH PRN IV FLUSH 11/02/16 07:15 (NS Flush) 2 ml BID IV FLUSH 11/02/16 09:00 11/03/16 10:03 (Romazicon Inj) 0.2 mg Q1M PRN IV PUSH 11/02/16 07:15 (Ativan) 1 mg Q4H PRN PO 11/02/16 07:15 (Ativan Inj) 1 mg Q4H PRN IV PUSH 11/02/16 07:15 (Ativan) 2 mg Q2H PRN PO 11/02/16 07:15 (Ativan Inj) 2 mg Q2H PRN IV PUSH 11/02/16 07:15 (Ativan Inj) 2 mg Q1H PRN IV PUSH 11/02/16 07:15 (Ativan Inj) 2 mg Q15M PRN IV PUSH 11/02/16 07:15 11/02/16 15:25 (Vitamin B1) 100 mg DAILY PO 11/02/16 09:00 11/03/16 10:02 (Theragran M Tab) 1 tab DAILY PO 11/03/16 09:00 11/08/16 08:59 11/03/16 10:02 (Catapres) 0.1 mg Q6H PRN PO 11/02/16 13:45 (Catapres) 0.1 mg TID PO 11/02/16 18:00 11/03/16 12:50 (Cerebyx Inj) 100 mgpe Q8HR IV 11/02/16 22:00 11/03/16 12:52 (Ativan Inj) 1 mg Q4H PRN IV PUSH 11/02/16 17:00 (Thiamine Inj) 100 mg DAILY IM 11/02/16 17:00 11/04/16 16:59 11/03/16 09:00 (Mag-Ox) 400 mg DAILY PO 11/04/16 09:00 11/08/16 08:59 Allergies Allergies Coded Allergies No Known Allergies ([id number]/29/16) Exam I&O / VS 11/02/16 11/02/16 11/03/16 15:00 23:00 07:00 # Voids 4 # Bowel Movements 1 Vital Signs Date Time Temp Pulse Resp B/P Pulse Ox O2 Delivery O2 Flow Rate FiO2 11/03/16 17:06 98.6 75 18 118/80 11/03/16 17:04 99.1 78 18 119/80 97 11/03/16 12:20 98.0 75 18 124/87 94 11/03/16 08:52 99.2 80 18 122/80 95 11/03/16 04:21 98.2 76 16 114/81 96 11/03/16 00:39 97.2 78 16 117/74 97 11/02/16 20:36 97.6 89 16 126/88 98 11/02/16 20:00 82 Exam Comments alert, oriented, follow commands cn 2-12 normal motor 5/5 bilateral Objective Radiology Results CT brain--stable EEG--right temporal sharp activity Micro and Labs Laboratory Tests Test 11/03/16 06:33 White Blood Count 7.6 Red Blood Count 4.12 Hemoglobin 14.0 Hematocrit 40.5 Mean Corpuscular Volume 98.3 Mean Corpuscular Hemoglobin 34.0 Mean Corpuscular Hemoglobin 34.6 Concent Red Cell Distribution Width 13.8 Platelet Count 151 Mean Platelet Volume 7.9 Neutrophils (%) (Auto) 71.8 Lymphocytes (%) (Auto) 14.5 Monocytes (%) (Auto) 11.9 Eosinophils (%) (Auto) 1.2 Basophils (%) (Auto) 0.6 Neutrophils # (Auto) 5.4 Lymphocytes # (Auto) 1.1 Monocytes # (Auto) 0.9 Eosinophils # (Auto) 0.1 Basophils # (Auto) 0.0 CBC Comment DIFF FINAL Differential Comment Sodium Level 133 Potassium Level 3.1 Chloride Level 94 Carbon Dioxide Level 28.0 Anion Gap 11 Blood Urea Nitrogen 3 Creatinine 0.51 Estimat Glomerular Filtration 175 Rate Random Glucose 91 Calcium Level 8.1 Phenytoin (Dilantin) Level 19.0 Cooper Pineda PhD Nov 03, 2016 19:00
[2016-11-03] MEDS: PHENYTOIN SODIUM 100 MG CAP PO SCH (22:18)
[2016-11-04] VITALS (7 sets, daily range): BP systolic 119–129; BP diastolic 68–87; PULSE 72–83; RESP 14–20; TEMP 97.6–98.9; O2SAT 77–98
[2016-11-04] MEDS: PHENYTOIN SODIUM 100 MG CAP PO SCH ×3 (06:34→22:19)
[2016-11-04] MEDS: SODIUM CHLORIDE 0.9% FLUSH 5 ML FLUSH IV FLUSH SCH ×2 (08:25→21:00)
[2016-11-04] MEDS: MULTIVITAMINS/MINERALS THERAPEUTIC TAB PO SCH (08:25)
[2016-11-04] MEDS: THIAMINE HCL 200 MG/2 ML VIAL IM SCH (08:25)
[2016-11-04] MEDS: MAGNESIUM OXIDE 400 MG TAB PO SCH (08:26)
[2016-11-04] MEDS: THIAMINE HCL 100 MG TAB PO SCH (08:26)
[2016-11-04] MEDS: cloNIDine HCL 0.1 MG TAB PO SCH ×3 (08:26→18:18)
--- NOTE | 2016-11-04 11:26 | HHI.PR ---
Subjective Remarks In nad. Denies cp, sob, n/v/d/c. No headache or change in vision, no motor / sensory deficit. Denies seizure or EtOH withdrawal symptoms. Objective Vitals Vital Signs Date Time Temp Pulse Resp B/P Pulse Ox O2 Delivery O2 Flow Rate FiO2 11/04/16 08:00 98.0 76 20 129/68 97 11/04/16 04:00 98.9 78 14 119/69 98 11/04/16 00:00 98.1 83 16 127/81 96 11/03/16 23:00 80 11/03/16 20:00 98.2 80 14 123/80 95 11/03/16 17:06 98.6 75 18 118/80 11/03/16 17:04 99.1 78 18 119/80 97 11/03/16 12:20 98.0 75 18 124/87 94 I/O 11/03/16 11/03/16 11/03/16 11/04/16 11/04/16 11/04/16 06:59 14:59 22:59 06:59 14:59 22:59 Intake Total 360 ml 410 ml 240 ml Balance 360 ml 410 ml 240 ml Intake Oral 360 ml 360 ml 240 ml IV Total 50 ml # Voids 4 2 2 3 # Bowel Movements 1 1 Result Diagram: 11/03/1633 11/03/16632 Imaging Last Impressions Head CT 11/03/16 06 Signed Impressions: Service Date/Time: Thursday, November 03, 2016 09:04 - CONCLUSION: Stable CT brain scan Oseas Chandler MD Pelvis X-Ray 11/02/16335 Signed Impressions: Service Date/Time: October 03:56 - CONCLUSION: Negative trauma study. Pedro Pablo Lion MD Chest X-Ray 11/02/16335 Signed Impressions: Service Date/Time: October 03:52 - CONCLUSION: No acute disease. Pedro Pablo Lion MD Cervical Spine CT 11/02/16335 Signed Impressions: Service Date/Time: October 03:47 - CONCLUSION: 1. No acute fracture. 2. Stable mild retrolisthesis of C5 on C6 with degenerative disc change at this level. Pedro Pablo Lion MD Objective Remarks GENERAL: This is a well-nourished, well-developed patient, in no apparent distress. SKIN: No rashes, ecchymoses or lesions. Cool and dry. HEAD: Atraumatic. Normocephalic. No temporal or scalp tenderness. EYES: Pupils equal round and reactive. Extraocular motions intact. No scleral icterus. No injection or drainage. ENT: Nose without bleeding, purulent drainage or septal hematoma. Throat without erythema, tonsillar hypertrophy or exudate. Uvula midline. Airway patent. NECK: Trachea midline. No JVD or lymphadenopathy. Supple, nontender, no meningeal signs. CARDIOVASCULAR: Regular rate and rhythm without murmurs, gallops, or rubs. RESPIRATORY: Clear to auscultation. Breath sounds equal bilaterally. No wheezes , rales, or rhonchi. GASTROINTESTINAL: Abdomen soft, non-tender, nondistended. No hepato-splenomegaly , or palpable masses. No guarding. MUSCULOSKELETAL: Extremities without clubbing, cyanosis, or edema. No joint tenderness, effusion, or edema noted. No calf tenderness. Negative Homans sign bilaterally. NEUROLOGICAL: Awake and alert. Cranial nerves II through XII intact. Motor and sensory grossly within normal limits. Five out of 5 muscle strength in all muscle groups. Normal speech. A/P Assessment and Plan 46 yo male with PMH of seizure, multiple falls, EtOH use Fall Right Otorrhagia Left parietal lobe with small hemorrhage H/o seizures taking dilantin at home CT head on admission: 1. New small area of high density hemorrhage in the left parietal lobe with no mass effect. 2. Post surgical changes and encephalomalacia in the right frontal and left temporal lobe. Consult Dr Boyer, neurosurgery EEG--right temporal sharp activity Start [facility] protocol Check dilantin level subtherapeutic on admission He had seizure 11/02 at admission . Dilantin level subtherapeutic. Restarted dilantin. Received phosphenytoin IV by neuro, changed to dilantin PO. Per neuro recheck dilantin level in 2-[address] Pineda neuro following, appreciate recommendations. EEG pending. CT head stable/ neurosurgery signed of. DVT ppx with SCD/TEDs , chemical ppx CI as patient with IC Hgg Code Status full Discussed Condition With patient, nurse DC when improved and cleared by neuro. Discharge Planning Pending improvement, neuro clearance for DC Cosma,Chanell MD Nov 04, 2016 11:26 Chanell Worthy MD Nov 04, 2016 11:26
[2016-11-04] MEDS ORDERED: POTASSIUM CHLORIDE 10 MEQ CONTROLLED RELEASE TAB PO ONE (12:00)
[2016-11-04] MEDS: SODIUM CHLORIDE 0.9% FLUSH 5 ML FLUSH IV FLUSH PRN (22:22)
[2016-11-05] VITALS (8 sets, daily range): BP systolic 118–134; BP diastolic 75–87; PULSE 57–104; RESP 14–24; TEMP 96.2–100.1; O2SAT 93–100
[2016-11-05] MEDS: LORazepam 2 MG TAB PO PRN ×3 (03:10→07:26)
[2016-11-05] MEDS: PHENYTOIN SODIUM 100 MG CAP PO SCH ×3 (05:13→20:48)
[2016-11-05] MEDS: LORazepam 2 MG/ML VIAL IV PUSH PRN ×8 (08:02→23:09)
--- NOTE | 2016-11-05 08:42 | HHI.PR ---
Subjective Remarks Patient is noted with altered mental status in the morning, he was agitated, confused, he was smoking in the room, pulled IVs, unsteady gait. Will repeat CT scan, give ativan, will check dilantin level. Not sure if patient had seizure or EtOH withdrawals. Patient says he did not have seizures. He is alert and oriented by name and . Patient with visual/ auditory hallucinations 2/2 EtOH withdrawals likely. No fevr or chills./ no cough. Follows commands. Normal neuro exam. Objective Vitals Vital Signs Date Time Temp Pulse Resp B/P Pulse Ox O2 Delivery O2 Flow Rate FiO2 11/05/16 04:00 98.7 101 18 126/85 95 11/05/16 00:00 100.1 57 14 118/87 93 11/04/16 20:00 98.8 77 16 124/75 77 11/04/16 16:00 97.6 77 16 119/87 97 11/04/16 12:10 98.1 72 17 120/77 97 I/O 11/04/16 11/04/16 11/04/16 11/05/16 11/05/16 11/05/16 07:00 15:00 23:00 07:00 15:00 23:00 Intake Total 240 ml 480 ml 360 ml Balance 240 ml 480 ml 360 ml Intake Oral 240 ml 480 ml 360 ml # Voids 3 3 5 # Bowel Movements 2 Result Diagram: 11/03/16 0633 11/04/16 1438 Imaging Last Impressions Head CT 11/03/16 0600 Signed Impressions: Service Date/Time: Thursday, November 03, 2016 09:04 - CONCLUSION: Stable CT brain scan Oseas Chandler MD Pelvis X-Ray 11/02/16335 Signed Impressions: Service Date/Time: October 03:56 - CONCLUSION: Negative trauma study. Pedro Pablo Lion MD Chest X-Ray 11/02/16335 Signed Impressions: Service Date/Time: October 03:52 - CONCLUSION: No acute disease. Pedro Pablo Lion MD Cervical Spine CT 11/02/16335 Signed Impressions: Service Date/Time: October 03:47 - CONCLUSION: 1. No acute fracture. 2. Stable mild retrolisthesis of C5 on C6 with degenerative disc change at this level. Pedro Pablo Lion MD Objective Remarks GENERAL: This is a skinny 46 yo male, well-developed patient, in restraints. SKIN: No rashes, ecchymoses or lesions. Cool and dry. HEAD: Atraumatic. Normocephalic. No temporal or scalp tenderness. EYES: Pupils equal round and reactive. Extraocular motions intact. No scleral icterus. No injection or drainage. ENT: Nose without bleeding, purulent drainage or septal hematoma. Throat without erythema, tonsillar hypertrophy or exudate. Uvula midline. Airway patent. NECK: Trachea midline. No JVD or lymphadenopathy. Supple, nontender, no meningeal signs. CARDIOVASCULAR: Regular rate and rhythm without murmurs, gallops, or rubs. RESPIRATORY: Clear to auscultation. Breath sounds equal bilaterally. No wheezes , rales, or rhonchi. GASTROINTESTINAL: Abdomen soft, non-tender, nondistended. No hepato-splenomegaly , or palpable masses. No guarding. MUSCULOSKELETAL: Extremities without clubbing, cyanosis, or edema. No joint tenderness, effusion, or edema noted. No calf tenderness. Negative Homans sign bilaterally. NEUROLOGICAL: Awake. Confused. Cranial nerves II through XII intact. Motor and sensory grossly within normal limits. Five out of 5 muscle strength in all muscle groups. Normal speech. A/P Assessment and Plan 46 yo male with PMH of seizure, multiple falls, EtOH use Fall Right Otorrhagia Left parietal lobe with small hemorrhage H/o seizures taking dilantin at home EtOH withdrawals. 11/05/16 Patient with visual/ auditory hallucinations 2/2 EtOH withdrawals likely. Also noted confused, pulled IVs, unsteady gait. Repeat CT head stable. Also will check dilantin level. Requiring restraints. On [facility] protocol CT head on admission: 1. New small area of high density hemorrhage in the left parietal lobe with no mass effect. 2. Post surgical changes and encephalomalacia in the right frontal and left temporal lobe. Consult Dr Boyer, neurosurgery EEG--right temporal sharp activity Cont. [facility] protocol Check dilantin level subtherapeutic on admission He had seizure 11/02 at admission . Dilantin level subtherapeutic. Restarted dilantin. Received phosphenytoin IV by neuro, changed to dilantin PO. Per neuro recheck dilantin level in 2-[address] Pineda neuro following, appreciate recommendations. CT head stable/ neurosurgery signed of. DVT ppx with SCD/TEDs , chemical ppx CI as patient with IC Hgg Code Status full Discussed Condition With patient, nurse DC when improved and cleared by neuro. Discharge Planning Pending improvement, neuro clearance for DC Chanell Worthy MD Nov 05, 2016 08:42 Chanell Worthy MD Nov 05, 2016 08:42
[2016-11-05] MEDS: MULTIVITAMINS/MINERALS THERAPEUTIC TAB PO SCH (09:15)
[2016-11-05] MEDS: THIAMINE HCL 100 MG TAB PO SCH (09:15)
[2016-11-05] MEDS: MAGNESIUM OXIDE 400 MG TAB PO SCH (09:15)
[2016-11-05] MEDS: SODIUM CHLORIDE 0.9% FLUSH 5 ML FLUSH IV FLUSH SCH ×2 (09:15→20:51)
[2016-11-05] MEDS: cloNIDine HCL 0.1 MG TAB PO SCH ×3 (09:15→16:50)
--- NOTE | 2016-11-05 10:32 | RADRPT ---
EXAM DATE/TIME: 11/05/2016 10:13 [place] COMPARISON: CT BRAIN W/O CONTRAST, November 03, 2016, 9:04. INDICATIONS : Altered mental status. RADIATION DOSE: 28.34 CTDIvol (mGy) MEDICAL HISTORY : Seizures. SURGICAL HISTORY : Craniotomy. ENCOUNTER: Subsequent ACUITY: 4 - 6 days PAIN SCALE: 0/10 LOCATION: cranial TECHNIQUE: Multiple contiguous axial images were obtained of the head. Using automated exposure control and adj ustment of the mA and/or kV according to patient size, radiation dose was kept as low as reasonably a chievable to obtain optimal diagnostic quality images. FINDINGS: High density along the tentorium is noted consistent with layering subdural hemorrhage. There is inte rhemispheric subdural hemorrhage also seen, not significantly changed. There are no new areas of hemo rrhage identified. There are no signs of acute infarct. There is encephalomalacia in the left tempora l region which is stable. Postsurgical changes to the right temporal calvarium are noted. CONCLUSION: Stable intracranial hemorrhage. Devin Marx MD on November 05, 2016 at 10:29 Board Certified Radiologist. This report was verified electronically.
[2016-11-05 13:56] LABS: AUTOMATED NEUTROPHIL # 4.7 TH/MM3 (1.8-7.7); BASOPHIL # 0.1 TH/MM3 (0-0.2); BASOPHIL % 0.9 % (0.0-2.0); EOSINOPHIL # 0.2 TH/MM3 (0-0.4); EOSINOPHIL % 2.2 % (0.0-4.0); HEMATOCRIT 45.8 % (39.0-51.0); HEMO FLAGS DIFF FINAL; LYMPH % 18.4 % (9.0-44.0); LYMPHOCYTE # 1.5 TH/MM3 (1.0-4.8); MEAN CELL VOLUME 99.4 FL (80.0-100.0); MEAN CORPUSCULAR HEMOGLOBIN 33.5 PG (27.0-34.0); MEAN CORPUSCULAR HGB CONC 33.7 % (32.0-36.0); MONO % 20.6 % (0.0-8.0); NEUT % 57.9 % (16.0-70.0); PLATELET COUNT 180 TH/MM3 (150-450); RED BLOOD COUNT 4.61 MIL/MM3 (4.50-5.90); WHITE BLOOD COUNT 8.2 TH/MM3 (4.0-11.0)
[2016-11-05 14:14] LABS: BICARBONATE 25.8 MEQ/L (21.0-32.0); POTASSIUM 3.9 MEQ/L (3.5-5.1)
[2016-11-06] VITALS (8 sets, daily range): BP systolic 105–127; BP diastolic 78–83; PULSE 77–98; RESP 20; TEMP 95.9–98.6; O2SAT 96–100
[2016-11-06] MEDS: LORazepam 2 MG/ML VIAL IV PUSH PRN ×8 (01:32→18:44)
[2016-11-06] MEDS: SODIUM CHLORIDE 0.9% FLUSH 5 ML FLUSH IV FLUSH PRN ×3 (01:34→06:34)
[2016-11-06] MEDS: PHENYTOIN SODIUM 100 MG CAP PO SCH ×3 (06:27→21:33)
--- NOTE | 2016-11-06 08:22 | HHI.PR ---
Subjective Remarks Sleepy, he received ativan as he was with tremors. He is agitated on /off. No n/ v/d/c. No motor deficit. Objective Vitals Vital Signs Date Time Temp Pulse Resp B/P Pulse Ox O2 Delivery O2 Flow Rate FiO2 11/06/16 06:43 97.4 90 20 127/82 97 11/06/16 00:00 96.8 93 20 125/82 96 11/05/16 20:40 96 11/05/16 20:00 96.2 87 22 130/84 100 11/05/16 16:00 97.8 88 23 120/75 96 11/05/16 12:00 96.2 84 24 119/83 96 I/O 11/05/16 11/05/16 11/05/16 11/06/16 11/06/16 11/06/16 07:00 15:00 23:00 07:00 15:00 23:00 # Voids 3 2 2 # Bowel Movements 0 0 0 Result Diagram: 11/05/16 1315 11/05/16 1315 Imaging Last Impressions Head CT 11/05/16 0000 Signed Impressions: Service Date/Time: Saturday, November 05, 2016 10:13 - CONCLUSION: Stable intracranial hemorrhage. Devin Marx MD Pelvis X-Ray 11/02/16335 Signed Impressions: Service Date/Time: October 03:56 - CONCLUSION: Negative trauma study. Pedro Pablo Lion MD Chest X-Ray 11/02/16335 Signed Impressions: Service Date/Time: October 03:52 - CONCLUSION: No acute disease. Pedro Pablo Lion MD Cervical Spine CT 11/02/16335 Signed Impressions: Service Date/Time: October 03:47 - CONCLUSION: 1. No acute fracture. 2. Stable mild retrolisthesis of C5 on C6 with degenerative disc change at this level. Pedro Pablo Lion MD Objective Remarks GENERAL: This is a skinny 46 yo male, well-developed patient, in restraints. SKIN: No rashes, ecchymoses or lesions. Cool and dry. HEAD: Atraumatic. Normocephalic. No temporal or scalp tenderness. EYES: Pupils equal round and reactive. Extraocular motions intact. No scleral icterus. No injection or drainage. ENT: Nose without bleeding, purulent drainage or septal hematoma. Throat without erythema, tonsillar hypertrophy or exudate. Uvula midline. Airway patent. NECK: Trachea midline. No JVD or lymphadenopathy. Supple, nontender, no meningeal signs. CARDIOVASCULAR: Regular rate and rhythm without murmurs, gallops, or rubs. RESPIRATORY: Clear to auscultation. Breath sounds equal bilaterally. No wheezes , rales, or rhonchi. GASTROINTESTINAL: Abdomen soft, non-tender, nondistended. No hepato-splenomegaly , or palpable masses. No guarding. MUSCULOSKELETAL: Extremities without clubbing, cyanosis, or edema. No joint tenderness, effusion, or edema noted. No calf tenderness. Negative Homans sign bilaterally. NEUROLOGICAL: Awake. Confused. Cranial nerves II through XII intact. Motor and sensory grossly within normal limits. Five out of 5 muscle strength in all muscle groups. Normal speech. A/P Assessment and Plan 46 yo male with PMH of seizure, multiple falls, EtOH use Fall Right Otorrhagia Left parietal lobe with small hemorrhage H/o seizures taking dilantin at home EtOH withdrawals. 11/05/16 Patient with visual/ auditory hallucinations 2/2 EtOH withdrawals likely. Also noted confused, pulled IVs, unsteady gait. Repeat CT head stable. Also will check dilantin level. Requiring restraints. 1/2 with etoh withdrawals, toxic encephalopathy. Dilantin level of 16. Continue [facility] protocol. Will check ammonia On [facility] protocol CT head on admission: 1. New small area of high density hemorrhage in the left parietal lobe with no mass effect. 2. Post surgical changes and encephalomalacia in the right frontal and left temporal lobe. Consult Dr Boyer, neurosurgery EEG--right temporal sharp activity Cont. [facility] protocol Check dilantin level subtherapeutic on admission He had seizure 11/02 at admission . Dilantin level subtherapeutic. Restarted dilantin. Received phosphenytoin IV by neuro, changed to dilantin PO. Per neuro recheck dilantin level in 2-[address] Edwin leslie following, appreciate recommendations. CT head stable/ neurosurgery signed of. DVT ppx with SCD/TEDs , chemical ppx CI as patient with IC Hgg Code Status full Discussed Condition With patient, nurse DC when improved and cleared by neuro. Discharge Planning Pending improvement, neuro clearance for DC Chanell Worthy MD Nov 06, 2016 08:22
[2016-11-06 08:29] LABS: AUTOMATED NEUTROPHIL # 4.5 TH/MM3 (1.8-7.7); BASOPHIL # 0.1 TH/MM3 (0-0.2); BASOPHIL % 0.8 % (0.0-2.0); EOSINOPHIL # 0.2 TH/MM3 (0-0.4); EOSINOPHIL % 2.3 % (0.0-4.0); HEMATOCRIT 44.9 % (39.0-51.0); HEMO FLAGS DIFF FINAL; LYMPH % 16.1 % (9.0-44.0); LYMPHOCYTE # 1.1 TH/MM3 (1.0-4.8); MEAN CELL VOLUME 100.1 FL (80.0-100.0); MEAN CORPUSCULAR HEMOGLOBIN 33.8 PG (27.0-34.0); MEAN CORPUSCULAR HGB CONC 33.8 % (32.0-36.0); MONO % 14.3 % (0.0-8.0); NEUT % 66.5 % (16.0-70.0); PLATELET COUNT 214 TH/MM3 (150-450); RED BLOOD COUNT 4.49 MIL/MM3 (4.50-5.90); RED CELL DISTRIBUTION WIDTH 13.8 % (11.6-17.2); WHITE BLOOD COUNT 6.8 TH/MM3 (4.0-11.0)
[2016-11-06] MEDS: MULTIVITAMINS/MINERALS THERAPEUTIC TAB PO SCH (08:43)
[2016-11-06] MEDS: THIAMINE HCL 100 MG TAB PO SCH (08:44)
[2016-11-06] MEDS: SODIUM CHLORIDE 0.9% FLUSH 5 ML FLUSH IV FLUSH SCH ×2 (08:44→21:33)
[2016-11-06] MEDS: cloNIDine HCL 0.1 MG TAB PO SCH ×3 (08:44→17:40)
[2016-11-06] MEDS: MAGNESIUM OXIDE 400 MG TAB PO SCH (08:44)
[2016-11-06 08:51] LABS: BICARBONATE 24.7 MEQ/L (21.0-32.0); MAGNESIUM 2.3 MG/DL (1.5-2.5); POTASSIUM 3.6 MEQ/L (3.5-5.1)
[2016-11-07] VITALS (7 sets, daily range): BP systolic 107–119; BP diastolic 70–83; PULSE 77–82; RESP 18–20; TEMP 97.5–98.5; O2SAT 96–99
[2016-11-07] MEDS: PHENYTOIN SODIUM 100 MG CAP PO SCH ×3 (05:49→20:01)
[2016-11-07] MEDS: MAGNESIUM OXIDE 400 MG TAB PO SCH (08:48)
[2016-11-07] MEDS: cloNIDine HCL 0.1 MG TAB PO SCH ×3 (08:48→16:34)
[2016-11-07] MEDS: THIAMINE HCL 100 MG TAB PO SCH (08:48)
[2016-11-07] MEDS: MULTIVITAMINS/MINERALS THERAPEUTIC TAB PO SCH (08:48)
[2016-11-07] MEDS: SODIUM CHLORIDE 0.9% FLUSH 5 ML FLUSH IV FLUSH SCH ×2 (08:49→20:02)
[2016-11-07] MEDS ORDERED: PHENYTOIN SODIUM 100 MG CAP PO ONE (11:30)
--- NOTE | 2016-11-07 16:29 | HHI.PR ---
Subjective Remarks Seen earlier today. Still in restraints. Confused, but appears better than yesterday No tremors. With etoh withdrawals. No seizures Objective Vitals Vital Signs Date Time Temp Pulse Resp B/P Pulse Ox O2 Delivery O2 Flow Rate FiO2 11/07/16 11:30 97.5 78 20 110/73 96 11/07/16 08:00 80 11/07/16 07:05 97.6 77 20 119/81 98 11/07/16 04:13 98.1 77 18 115/83 99 11/07/16 00:10 97.8 81 18 111/75 98 11/06/16 20:08 97.4 83 20 115/78 100 11/06/16 20:00 83 I/O 11/06/16 11/06/16 11/06/16 11/07/16 11/07/16 11/07/16 07:00 15:00 23:00 07:00 15:00 23:00 Intake Total 240 ml 240 ml Balance 240 ml 240 ml Intake Oral 240 ml 240 ml # Voids 2 3 1 2 # Bowel Movements 0 Result Diagram: 11/06/16 0754 11/06/16 0754 Objective Remarks GENERAL: This is a skinny 46 yo male, well-developed patient, in restraints. SKIN: No rashes, ecchymoses or lesions. Cool and dry. HEAD: Atraumatic. Normocephalic. No temporal or scalp tenderness. EYES: Pupils equal round and reactive. Extraocular motions intact. No scleral icterus. No injection or drainage. ENT: Nose without bleeding, purulent drainage or septal hematoma. Throat without erythema, tonsillar hypertrophy or exudate. Uvula midline. Airway patent. NECK: Trachea midline. No JVD or lymphadenopathy. Supple, nontender, no meningeal signs. CARDIOVASCULAR: Regular rate and rhythm without murmurs, gallops, or rubs. RESPIRATORY: Clear to auscultation. Breath sounds equal bilaterally. No wheezes , rales, or rhonchi. GASTROINTESTINAL: Abdomen soft, non-tender, nondistended. No hepato-splenomegaly , or palpable masses. No guarding. MUSCULOSKELETAL: Extremities without clubbing, cyanosis, or edema. No joint tenderness, effusion, or edema noted. No calf tenderness. Negative Homans sign bilaterally. NEUROLOGICAL: Awake. Confused. Cranial nerves II through XII intact. Motor and sensory grossly within normal limits. Five out of 5 muscle strength in all muscle groups. Normal speech. A/P Assessment and Plan 46 yo male with PMH of seizure, multiple falls, EtOH use Fall Right Otorrhagia Left parietal lobe with small hemorrhage H/o seizures taking dilantin at home EtOH withdrawals. 11/05/16 Patient with visual/ auditory hallucinations 2/2 EtOH withdrawals likely. Also noted confused, pulled IVs, unsteady gait. Repeat CT head stable. Also will check dilantin level. Requiring restraints. /2 with etoh withdrawals, toxic encephalopathy. Dilantin level of 16. Continue [facility] protocol. Will check ammonia On [facility] protocol CT head on admission: 1. New small area of high density hemorrhage in the left parietal lobe with no mass effect. 2. Post surgical changes and encephalomalacia in the right frontal and left temporal lobe. Consult Dr Boyer, neurosurgery EEG--right temporal sharp activity Cont. [facility] protocol Check dilantin level subtherapeutic on admission He had seizure 11/02 at admission . Dilantin level subtherapeutic. Restarted dilantin. Received phosphenytoin IV by neuro, changed to dilantin PO. Per neuro recheck dilantin level in 2-[address] Pineda neuro following, appreciate recommendations. CT head stable/ neurosurgery signed of. DVT ppx with SCD/TEDs , chemical ppx CI as patient with IC Hgg Code Status full Discussed Condition With patient, nurse DC when improved and cleared by neuro. With ETOH withdrawals now, improving . POss DC tomorrow if improved . Needs PT as OP as unsteady gait Discharge Planning Pending improvement, neuro clearance for DC Chanell Worthy MD Nov 07, 2016 16:29
[2016-11-07] MEDS ORDERED: PHENYTOIN SODIUM 100 MG CAP PO SCH (21:00)
[2016-11-08] VITALS (8 sets, daily range): BP systolic 106–135; BP diastolic 51–80; PULSE 74–83; RESP 18–20; TEMP 97.4–98.4; O2SAT 96–97
[2016-11-08] MEDS: PHENYTOIN SODIUM 100 MG CAP PO SCH ×3 (05:40→20:04)
[2016-11-08] MEDS: THIAMINE HCL 100 MG TAB PO SCH (08:42)
[2016-11-08] MEDS: cloNIDine HCL 0.1 MG TAB PO SCH ×3 (08:43→18:00)
[2016-11-08] MEDS: SODIUM CHLORIDE 0.9% FLUSH 5 ML FLUSH IV FLUSH SCH ×2 (08:43→20:05)
--- NOTE | 2016-11-08 17:27 | HHI.PR ---
Subjective Remarks Patient laying comfortably in bed Awake alert oriented 3 No chest pain or short of breath Objective Vitals Vital Signs Date Time Temp Pulse Resp B/P Pulse Ox O2 Delivery O2 Flow Rate FiO2 11/08/16 13:32 98.1 81 20 106/68 96 11/08/16 07:05 97.4 74 20 115/75 97 11/08/16 05:14 98.4 76 18 117/80 97 11/08/16 00:01 98.1 82 19 111/73 97 11/07/16 20:46 98.5 82 18 112/71 96 I/O 11/07/16 11/07/16 11/07/16 11/08/16 11/08/16 11/08/16 07:00 15:00 23:00 07:00 15:00 23:00 Intake Total 480 ml 240 ml Balance 480 ml 240 ml Intake Oral 480 ml 240 ml # Voids 2 6 1 5 # Bowel Movements 0 0 Result Diagram: 11/06/16 0754 11/06/16 0754 Objective Remarks GENERAL: This is a well-nourished, well-developed patient, in no apparent distress. CARDIOVASCULAR: Regular rate and rhythm without murmurs, gallops, or rubs. RESPIRATORY: Clear to auscultation. Breath sounds equal bilaterally. No wheezes , rales, or rhonchi. GASTROINTESTINAL: Abdomen soft, non-tender, nondistended. Normal active bowel sounds MUSCULOSKELETAL: Extremities without clubbing, cyanosis, or edema. NEURO: Alert & Oriented x4 to person, place, time, situation. Moves all ext x4 A/P Assessment and Plan 46 yo male with PMH of seizure, multiple falls, EtOH use Fall Right Otorrhagia Left parietal lobe with small hemorrhage H/o seizures taking dilantin at home EtOH withdrawals. 11/05/16 Patient with visual/ auditory hallucinations 2/2 EtOH withdrawals likely. Also noted confused, pulled IVs, unsteady gait. Repeat CT head stable. Also will check dilantin level. Requiring restraints. 1/2 with etoh withdrawals, toxic encephalopathy. Dilantin level of 16. Continue [facility] protocol. Will check ammonia On [facility] protocol 11/08/16: Continue current care, try to get up for strain CT head on admission: 1. New small area of high density hemorrhage in the left parietal lobe with no mass effect. 2. Post surgical changes and encephalomalacia in the right frontal and left temporal lobe. Consult Dr Boyer, neurosurgery EEG--right temporal sharp activity Cont. [facility] protocol Check dilantin level subtherapeutic on admission He had seizure 11/02 at admission . Dilantin level subtherapeutic. Restarted dilantin. Received phosphenytoin IV by neuro, changed to dilantin PO. Per neuro recheck dilantin level in 2-[address] Pineda neuro following, appreciate recommendations. CT head stable/ neurosurgery signed of. DVT ppx with SCD/TEDs , chemical ppx CI as patient with IC Hgg Lupe Harrington MD Nov 08, 2016 17:27
[2016-11-09 04:25] VITALS: BP 125/74; PULSE 85; RESP 17; TEMP 98.6; O2SAT 95
[2016-11-09] MEDS: PHENYTOIN SODIUM 100 MG CAP PO SCH ×2 (05:22→13:08)
[2016-11-09 08:22] VITALS: BP 133/85; PULSE 77; RESP 16; TEMP 97.8; O2SAT 95
[2016-11-09 10:11] VITALS: PULSE 80
[2016-11-09] MEDS: SODIUM CHLORIDE 0.9% FLUSH 5 ML FLUSH IV FLUSH SCH (10:11)
[2016-11-09] MEDS: THIAMINE HCL 100 MG TAB PO SCH (10:11)
[2016-11-09] MEDS: cloNIDine HCL 0.1 MG TAB PO SCH ×2 (10:11→13:08)
[2016-11-09 12:38] VITALS: BP 127/72; PULSE 78; RESP 17; TEMP 97.9; O2SAT 98
[2016-11-09] MEDS ORDERED: DILA100C PO (14:26)
--- NOTE | 2016-11-09 15:43 | HHI.DS ---
Discharge Summary Admission Date Nov 02, 2016 at 05:20 Discharge Date: Nov 09, 2016 Admitting Diagnosis intracranial bleed, alcohol intoxication (1) EtOH dependence ICD Code: F10.20 (2) Headache ICD Code: R51 (3) Seizure ICD Code: R56.9 (4) Intracranial hemorrhage ICD Code: I62.9 Procedures See below Brief History - From Admission 46 yo male with PMH of seizures, EtOH use, noncompliant with meds and follow up says due to lack of insurance. States he had a beer and a shot od hard liquer last night and on the way home he did fall on the street. He did manage to call 911 and paramedics came. Says he did not lose consciousness during or after the incident, no loss of bladder or bowels. Says he had similar previous episodes, one time years ago he did fall and had a large right side laceration. Denies tremors/ seizure activity. No lightheadedness, palpitations, n/v/d/c. Says paramedics told him he is bleeding from his right ear. Says she does have a h/o seizure, takes meds and says he is fairly compliant, however he doesn't have insurance and runs out of meds. No change in vision sensory or motor deficit. Note patient has a EtOH odor breath. CBC/BMP: 11/06/16 0754 11/06/16 0754 PE at Discharge GENERAL: This is a well-nourished, well-developed patient, in no apparent distress. CARDIOVASCULAR: Regular rate and rhythm without murmurs, gallops, or rubs. RESPIRATORY: Clear to auscultation. Breath sounds equal bilaterally. No wheezes , rales, or rhonchi. GASTROINTESTINAL: Abdomen soft, non-tender, nondistended. Normal active bowel sounds MUSCULOSKELETAL: Extremities without clubbing, cyanosis, or edema. NEURO: Alert & Oriented x4 to person, place, time, situation. Moves all ext x4 Hospital Course It's a admitted with fall and right otorrhagia left parietal lobe with a small hemorrhage and history of seizure on Dilantin a total withdrawal, neurology consulted CT-guided on the admission showed new small area of high density hemorrhage, Dr. Boyer neurosurgery also consulted EEG right temporal sharp activity, CIWA protocol initiated. Dilantin level was subtherapeutic, received iv by neurology and then switched to by mouth. neurology and neurosurgery signed off patient cleared for discharge to follow up as an outpatient and to be on Dilantin 3 times a day Pt Condition on Discharge: Good Discharge Disposition: Discharge Home Discharge Time: <= 30 minutes Discharge Instructions DIET: Follow Instructions for: Heart Healthy Diet Activities you can perform: Weight Bearing as Cali Other Activity Instructions: No driving, swimming alone or operating heavy machine until cleared by neurology Follow up Referrals: Neurology - 2 Weeks with Cooper Pineda PhD MD New Medications: Phenytoin Extended (Dilantin) 100 Mg Cap 100 MG PO Q8HR seizure #90 CAP Continued Medications: Clonidine (Clonidine) 0.1 Mg Tab 0.1 MG PO TID Blood Pressure Management #60 Ref 0 TAB Lupe Harrington MD Nov 09, 2016 15:43
== END 2016-11-09 17:00 | disposition home or self-care (01) | DRG 85 ==
LOC: NEPC 03:28 → NEDA 05:20 → NEDH 12:00 → N05A 17:09
PROVIDERS: ADMIT Hospitalist; ATTEND Hospitalist
DX: S06.5X0A Traumatic subdural hemorrhage without loss of consciousness, initial encounter (principal); G92 Toxic encephalopathy; F10.231 Alcohol dependence with withdrawal delirium; G93.89 Other specified disorders of brain; S02.102A Fracture of base of skull, left side, initial encounter for closed fracture; G40.909 Epilepsy, unspecified, not intractable, without status epilepticus; R29.6 Repeated falls; I10 Essential (primary) hypertension; M50.322 Other cervical disc degeneration at C5-C6 level; F17.210 Nicotine dependence, cigarettes, uncomplicated; W01.0XXA Fall on same level from slipping, tripping and stumbling without subsequent striking against object, initial encounter; Y90.8 Blood alcohol level of 240 mg/100 ml or more; Y92.410 Unspecified street and highway as the place of occurrence of the external cause; Z78.1 Physical restraint status; Z91.14 Patient's other noncompliance with medication regimen
CPT/HCPCS: 70450; 71010; 72125; 72170; 80048; 80185; 80320; 82140; 82948; 83735; 85025; 85610; 85730; 86850; 86900; 86901; 95819; G0479; J2060; J2405; J3411; J7030; L0150; Q2009

== ENCOUNTER 2017-01-03 21:38 | Emergency (ER) | payer SELFPAY ==
[~2017-01-03] VITALS: Ht 185.4 cm; Wt 70.0 kg
[~2017-01-03 21:38] MED LIST changes: +CEPH-460 PO; -CEPH500 PO; -CLON.1 PO; +CLON0.1T PO; +DILA100C PO; -HYDR-3580 PO; -IBUP400 PO; -LEVE500 PO; -OXYC20 PO; -PHEN100 PO; -Z.0.WALKERFRONT
[2017-01-03 21:42] VITALS: BP 134/85; PULSE 108; RESP 15; TEMP 98; O2SAT 94
[2017-01-03] MEDS ORDERED: DILA100C PO ×2 (22:31)
[2017-01-03 22:35] VITALS: BP 131/86; PULSE 90; RESP 18; O2SAT 95
[2017-01-03] MEDS ORDERED: SODIUM CHLOR 0.9% 1000 ML INJ 1,000 ML IV ONE (22:52)
[2017-01-03] MEDS ORDERED: SODIUM CHLORIDE 0.9% FLUSH 5 ML FLUSH IVF PRN (23:00)
[2017-01-03] MEDS ORDERED: LORazepam 2 MG/ML VIAL IV PUSH ONE (23:00)
--- NOTE | 2017-01-03 23:03 | PD ---
HPI . Feeling funny in the head Chief Complaint: Seizure Time Seen by Provider: 22:52 Travel History International Travel<30 days: No Contact w/Intl Traveler<30days: No Traveled to known affect area: No History of Present Illness HPI Patient states that he started feeling funny after he got off work tonight. He feels like he is going to have a seizure. He has a seizure disorder but states that he has never felt one coming on before. He states that his last drink of alcohol was yesterday. He feels nauseous but has not vomited. PFSH Past Medical History Cancer: No Cardiovascular Problems: No Diminished Hearing: No Endocrine: No Genitourinary: No Immune Disorder: No Musculoskeletal: No Neurologic: Yes Respiratory: No Seizures: Yes Influenza Vaccination: Yes Past Surgical History Neurologic Surgery: Yes (CRANIOTOMY) Other Surgery: Yes Social History Alcohol Use: Yes (4 days per week) Tobacco Use: Yes (1 PPD) Substance Use: No Allergies-Medications (Allergen,Severity, Reaction): Coded Allergies: No Known Allergies (Verified , 01/03/17) Reported Meds & Prescriptions Reported Meds & Active Scripts Active Reported Dilantin (Phenytoin Extended) 100 Mg Cap 200 Mg PO Q8HR Dilantin (Phenytoin Extended) 100 Mg Cap 250 Mg PO BID Review of Systems Except as stated in HPI: all other systems reviewed are Neg General / Constitutional: No: Fever, Chills Eyes: No: Blurred Vision HENT: Positive: Other Cardiovascular: No: Chest Pain or Discomfort (feels funny in his head) Respiratory: No: Shortness of Breath Gastrointestinal: Positive: Nausea, No: Vomiting, Diarrhea Psychiatric: Positive: Substance Abuse Physical Exam Narrative GENERAL: Patient is tremulous. SKIN: Warm and dry. HEAD: Atraumatic. Normocephalic. EYES: Pupils equal and round. ENT: No nasal bleeding or discharge. Mucous membranes pink and moist. I do not detect an odor of alcohol. NECK: Trachea midline. Neck is supple. CARDIOVASCULAR: Regular rate and rhythm. Heart sounds are normal. RESPIRATORY: No accessory muscle use. Lungs are clear with full air movement throughout. GASTROINTESTINAL: Abdomen soft, non-tender, nondistended. MUSCULOSKELETAL: No obvious deformities. No edema. NEUROLOGICAL: Awake and alert. No obvious cranial nerve deficits. Motor grossly within normal limits. Normal speech. PSYCHIATRIC: Appropriate mood and affect; insight and judgment normal. Data Data Last Documented VS Vital Signs Date Time Temp Pulse Resp B/P Pulse Ox O2 Delivery O2 Flow Rate FiO2 01/03/17 22:35 90 18 131/86 95 Room Air 01/03/17 21:42 98.0 Orders Basic Metabolic Panel (Bmp) (01/03/17 22:52) Complete Blood Count With Diff (01/03/17 22:52) Magnesium (Mg) (01/03/17 22:52) Ct Brain W/O Iv Contrast(Rout) (01/03/17 22:52) Iv Access Insert/Monitor (01/03/17 22:52) Sodium Chloride 0.9% Flush (Ns Flush) (01/03/17 23:00) Sodium Chlor 0.9% 1000 Ml Inj (Ns 1000 M (01/03/17 22:52) Lorazepam Inj (Ativan Inj) (01/03/17 23:00) Alcohol (Ethanol) (01/03/17 22:40) Phenytoin (Dilantin) (01/03/17 22:40) Labs Laboratory Tests Test 01/03/17 22:40 White Blood Count 8.6 TH/MM3 Red Blood Count 4.11 MIL/MM3 Hemoglobin 14.3 GM/DL Hematocrit 41.7 % Mean Corpuscular Volume 101.5 FL Mean Corpuscular Hemoglobin 34.7 PG Mean Corpuscular Hemoglobin 34.2 % Concent Red Cell Distribution Width 14.7 % Platelet Count 232 TH/MM3 Mean Platelet Volume 7.7 FL Neutrophils (%) (Auto) 82.6 % Lymphocytes (%) (Auto) 7.5 % Monocytes (%) (Auto) 8.4 % Eosinophils (%) (Auto) 0.9 % Basophils (%) (Auto) 0.6 % Neutrophils # (Auto) 7.1 TH/MM3 Lymphocytes # (Auto) 0.6 TH/MM3 Monocytes # (Auto) 0.7 TH/MM3 Eosinophils # (Auto) 0.1 TH/MM3 Basophils # (Auto) 0.1 TH/MM3 CBC Comment DIFF FINAL Differential Comment Sodium Level 138 MEQ/L Potassium Level 4.2 MEQ/L Chloride Level 101 MEQ/L Carbon Dioxide Level 24.8 MEQ/L Blood Urea Nitrogen 6 MG/DL Creatinine 0.72 MG/DL Random Glucose 121 MG/DL Calcium Level 8.6 MG/DL Magnesium Level 2.0 MG/DL Anion Gap 12 MEQ/L Estimat Glomerular Filtration 118 ML/MIN Rate Phenytoin (Dilantin) Level 2.3 MCG/ML Ethyl Alcohol Level 10 MG/DL MDM Medical Decision Making Medical Screen Exam Complete: Yes Emergency Medical Condition: Yes Differential Diagnosis Differential diagnosis of dizziness includes but is not limited to vertigo, dehydration, acute blood loss, sepsis, ACS Narrative Course Patient presents stating that he feels funny in the head. He has a known history of alcoholism. He reports that his last drink was yesterday. I suspect withdrawal. However, he has had a recent ICH. Therefore, I have ordered a CT of his head along with lab work. CBC & BMP Diagram 01/03/17 22:40 Blood alcohol level is 10. Dilantin level is 2.3. Last Impressions Head CT 01/03/17 8522 Signed Impressions: Service Date/Time: Tuesday, January 03, 2017 23:06 - CONCLUSION: 1. No acute findings. Resolution of previous intracranial hemorrhage. Stable encephalomalacia left temporal lobe. Postoperative right craniotomy. Artemio Riddle MD The patient has been resting comfortably since being given Ativan. He appears to have had some mild alcohol withdrawal. Diagnosis Primary Impression: EtOH dependence Qualified Code: F10.230 - Alcohol dependence with uncomplicated withdrawal Additional Impression: Subtherapeutic serum dilantin level Disposition: 01 DISCHARGE HOME Condition: Stable Christina Lawrence MD Jan 03, 2017 23:02
[2017-01-03 23:24] LABS: AUTOMATED NEUTROPHIL # 7.1 TH/MM3 (1.8-7.7); BASOPHIL # 0.1 TH/MM3 (0-0.2); BASOPHIL % 0.6 % (0.0-2.0); EOSINOPHIL # 0.1 TH/MM3 (0-0.4); EOSINOPHIL % 0.9 % (0.0-4.0); HEMATOCRIT 41.7 % (39.0-51.0); HEMO FLAGS DIFF FINAL; LYMPH % 7.5 % (9.0-44.0); LYMPHOCYTE # 0.6 TH/MM3 (1.0-4.8); MEAN CELL VOLUME 101.5 FL (80.0-100.0); MEAN CORPUSCULAR HEMOGLOBIN 34.7 PG (27.0-34.0); MEAN CORPUSCULAR HGB CONC 34.2 % (32.0-36.0); MONO % 8.4 % (0.0-8.0); NEUT % 82.6 % (16.0-70.0); PLATELET COUNT 232 TH/MM3 (150-450); RED BLOOD COUNT 4.11 MIL/MM3 (4.50-5.90); RED CELL DISTRIBUTION WIDTH 14.7 % (11.6-17.2); WHITE BLOOD COUNT 8.6 TH/MM3 (4.0-11.0)
--- NOTE | 2017-01-03 23:48 | RADRPT ---
EXAM DATE/TIME: 01/03/2017 23:06 [facility] COMPARISON: No previous studies available for comparison. INDICATIONS : Possible seizure, now dizzy RADIATION DOSE: 34.21 CTDIvol (mGy) MEDICAL HISTORY : Seizures. Traumatic brain injury. SURGICAL HISTORY : Craniotomy. ENCOUNTER: Initial ACUITY: 1 day PAIN SCALE: 0/10 LOCATION: Bilateral cranial TECHNIQUE: Multiple contiguous axial images were obtained of the head. Using automated exposure control and adj ustment of the mA and/or kV according to patient size, radiation dose was kept as low as reasonably a chievable to obtain optimal diagnostic quality images. FINDINGS: There are postoperative changes of right craniotomy. Previous extra-axial hemorrhage of the left tent orium and posterior interhemispheric region has resolved. No new intracranial hemorrhage. Stable ence phalomalacia in the left temporal lobe. No new mass, hemorrhage or midline shift. Ventricular size is stable. CONCLUSION: 1. No acute findings. Resolution of previous intracranial hemorrhage. Stable encephalomalacia left te mporal lobe. Postoperative right craniotomy. Artemio Riddle MD on January 03, 2017 at 23:45 Board Certified Radiologist. This report was verified electronically.
[2017-01-03 23:49] LABS: BICARBONATE 24.8 MEQ/L (21.0-32.0); POTASSIUM 4.2 MEQ/L (3.5-5.1)
[2017-01-04] MEDS ORDERED: PHENYTOIN SODIUM 100 MG CAP PO SCH ×2 (00:45→21:00)
[2017-01-04] MEDS ORDERED: DILA100C PO ×3 (00:56→00:58)
== END 2017-01-04 01:35 | disposition home or self-care (01) ==
LOC: NEPA 21:38
DX: F10.230 Alcohol dependence with withdrawal, uncomplicated (principal); Y90.0 Blood alcohol level of less than 20 mg/100 ml
CPT/HCPCS: 70450; 80048; 80185; 80320; 83735; 85025; 96361; 96374; 99284; J2060; J7030

== ENCOUNTER 2017-05-04 01:28 | Emergency (ER) | payer SELFPAY ==
[~2017-05-04] VITALS: Ht 185.4 cm; Wt 72.0 kg
[~2017-05-04 01:28] MED LIST changes: -CEPH-460 PO; -CLON0.1T PO
[2017-05-04 01:36] VITALS: BP 187/81; PULSE 124; RESP 24; TEMP 97.7; O2SAT 74
[2017-05-04] MEDS ORDERED: SODIUM CHLOR 0.9% 1000 ML INJ 1,000 ML IV ONE (01:36)
[2017-05-04 01:41] VITALS: RESP 24; O2SAT 100
[2017-05-04] MEDS ORDERED: LORazepam 2 MG/ML VIAL IVS ONE (01:45)
[2017-05-04 01:52] VITALS: BP 187/87; PULSE 114; RESP 28; O2SAT 96
[2017-05-04 01:53] LABS: AUTOMATED NEUTROPHIL # 5.8 TH/MM3 (1.8-7.7); BASOPHIL # 0.1 TH/MM3 (0-0.2); EOSINOPHIL # 0.2 TH/MM3 (0-0.4); EOSINOPHIL % 1.6 % (0.0-4.0); HEMATOCRIT 45.4 % (39.0-51.0); HEMO FLAGS DIFF FINAL; LYMPH % 28.7 % (9.0-44.0); MEAN CELL VOLUME 102.4 FL (80.0-100.0); MEAN CORPUSCULAR HEMOGLOBIN 33.8 PG (27.0-34.0); MONO % 14.3 % (0.0-8.0); NEUT % 54.4 % (16.0-70.0); PLATELET COUNT 194 TH/MM3 (150-450); RED BLOOD COUNT 4.43 MIL/MM3 (4.50-5.90); RED CELL DISTRIBUTION WIDTH 15.1 % (11.6-17.2); WHITE BLOOD COUNT 10.6 TH/MM3 (4.0-11.0)
[2017-05-04] MEDS ORDERED: FOSPHENYTOIN INJ 1,000 MGPE in SODIUM CHLORIDE 0.9% INJ 50 ML IV ONE (02:00)
[2017-05-04 02:20] LABS: ALKALINE PHOSPHATASE 138 U/L (45-117); TOTAL BILIRUBIN ADULT 0.5 MG/DL (0.2-1.0)
--- NOTE | 2017-05-04 02:36 | RADRPT ---
EXAM DATE/TIME: 05/04/2017 01:53 [facility] COMPARISON: CHEST SINGLE AP, November 02, 2016, 3:52. INDICATIONS : Shortness of breath. MEDICAL HISTORY : Unobtainable. SURGICAL HISTORY : Unobtainable. ENCOUNTER: Initial ACUITY: 1 day PAIN SCORE: Non-responsive. LOCATION: chest FINDINGS: The lungs are clear without infiltrate, nodule, or mass. There is no appreciable pleural effusion fo r technique. Heart and mediastinum are unremarkable. CONCLUSION: No acute cardiopulmonary disease. Yunier Wei MD on May 04, 2017 at 2:34 Board Certified Radiologist. This report was verified electronically.
[2017-05-04 02:47] LABS: AMPHETAMINE, URINE NEG (NEG); BARBITURATES, URINE NEG (NEG); COCAINE, URINE NEG (NEG)
--- NOTE | 2017-05-04 02:51 | RADRPT ---
EXAM DATE/TIME: 05/04/2017 02:29 [facility] COMPARISON: CT BRAIN W/O CONTRAST, January 03, 2017, 23:06. INDICATIONS : Patient had seizure and fell face first on tile floor. RADIATION DOSE: 56.35 CTDIvol (mGy) MEDICAL HISTORY : Seizures. Traumatic brain injury. SURGICAL HISTORY : Craniotomy. ENCOUNTER: Initial ACUITY: 1 day PAIN SCALE: 0/10 LOCATION: cranial TECHNIQUE: Multiple contiguous axial images were obtained of the head. Using automated exposure control and adj ustment of the mA and/or kV according to patient size, radiation dose was kept as low as reasonably a chievable to obtain optimal diagnostic quality images. DICOM format image data is available electro nically for review and comparison. FINDINGS: There is no evidence for intracranial hemorrhage, mass effect, mass lesions, edema, or extra-axial fl uid collections. The visualized bony structures appear intact. The ventricles are normal size for t he patient's age. There are no signs of acute infarction for technique. There is slight encephalomal acia in right frontal lobe and there is evidence for prior craniotomy on the right. There are multipl e fractures involving the nasal bones bilaterally, nasal septum, bilateral maxillary sinuses with ext ensive subcutaneous emphysema in the patient's face which extends to the right cheek and infratempora l fossa. The optic globe appear symmetric bilaterally and there is frontal scalp hematoma towards the left side anteriorly. CONCLUSION: Multiple facial fractures. Yunier Wei MD on May 04, 2017 at 2:45 Board Certified Radiologist. This report was verified electronically.
--- NOTE | 2017-05-04 02:55 | PD ---
HPI Chief Complaint: Seizure Time Seen by Provider: 01:36 Travel History International Travel<30 days: No Contact w/Intl Traveler<30days: No Traveled to known affect area: No History of Present Illness HPI H/O SEIZURE, HAD A TONIC CLONIC SZ WITNESSED BY [facility] GAVE ATIVAN EN ROUTE. ARRIVED POST ICTAL PFSH Past Medical History Cancer: No Cardiovascular Problems: No Diminished Hearing: No Endocrine: No Genitourinary: No Immune Disorder: No Musculoskeletal: No Neurologic: Yes Respiratory: No Immunizations Current: Yes Seizures: Yes Tetanus Vaccination: > 5 Years Influenza Vaccination: Yes Past Surgical History Neurologic Surgery: Yes (CRANIOTOMY) Other Surgery: Yes Social History Alcohol Use: Yes (4 days per week) Tobacco Use: Yes (1 PPD) Substance Use: No Allergies-Medications Reported Meds & Prescriptions Reported Meds & Active Scripts Active Dilantin (Phenytoin Extended) 100 Mg Cap 200 Mg PO BID Reported Dilantin (Phenytoin Extended) 100 Mg Cap 200 Mg PO BID Review of Systems ROS Limitations: Altered Mental Status Neurologic: Positive: Seizures Physical Exam Exam Limitations: Altered Mental Status Narrative GENERAL: SKIN: Warm and dry. HEAD: FRONTAL SCALP CONTUSION, BLEEDING FROM NOSE EYES: Pupils equal and round. No scleral icterus. No injection or drainage. ENT: No nasal bleeding or discharge. Mucous membranes pink and moist. NECK: Trachea midline. No JVD. CARDIOVASCULAR: Regular rate and rhythm. BUT TACHYCARDIC RESPIRATORY: No accessory muscle use. Clear to auscultation. Breath sounds equal bilaterally. GASTROINTESTINAL: Abdomen soft, non-tender, nondistended. Hepatic and splenic margins not palpable. MUSCULOSKELETAL: Extremities without clubbing, cyanosis, or edema. No obvious deformities. NEUROLOGICAL: POST ICTAL AND WHILE EXAMINING PT BEGAN TO HAVE GENERALIZED TONIC CLONIC SEIZURE AGAIN, GIVEN ATIVAN 2MG IV WELL LOADED WITH CEREBYX PSYCHIATRIC: UNABLE TO TEST Data Data Last Documented VS Vital Signs Date Time Temp Pulse Resp B/P Pulse Ox O2 Delivery O2 Flow Rate FiO2 05/04/17 09:08 86 18 128/79 97 Room Air 05/04/17 01:52 15 05/04/17 01:36 97.7 Orders Complete Blood Count With Diff (05/04/17 01:36) Alcohol (Ethanol) (05/04/17 01:36) Drug Screen, Random Urine (05/04/17 01:36) Ct Brain W/O Iv Contrast(Rout) (05/04/17 ) Blood Glucose (05/04/17 01:36) Ecg Monitoring (05/04/17 01:36) Iv Access Insert/Monitor (05/04/17 01:36) Oximetry (05/04/17 01:36) Urinary Catheter Insert/Apply (05/04/17 01:36) Comprehensive Metabolic Panel (05/04/17 01:36) Sodium Chlor 0.9% 1000 Ml Inj (Ns 1000 M (05/04/17 01:36) Lorazepam Inj (Ativan Inj) (05/04/17 01:45) Fosphenytoin Inj (Cerebyx Inj) (05/04/17 02:00) Chest, Single Ap (05/04/17 01:36) Forearm (2vws) (05/04/17 ) Ct Cerv Spine W/O Contrast (05/04/17 ) Ct Facial Bones W/O Iv Cont (05/04/17 ) Mandatory Outpatient Referral (05/04/17 06:14) Electrocardiogram (05/04/17 ) Labs Laboratory Tests Test 05/04/17 05/04/17 05/04/17 01:43 01:55 03:20 White Blood Count 10.6 TH/MM3 Red Blood Count 4.43 MIL/MM3 Hemoglobin 15.0 GM/DL Hematocrit 45.4 % Mean Corpuscular Volume 102.4 FL Mean Corpuscular Hemoglobin 33.8 PG Mean Corpuscular Hemoglobin 33.0 % Concent Red Cell Distribution Width 15.1 % Platelet Count 194 TH/MM3 Mean Platelet Volume 8.1 FL Neutrophils (%) (Auto) 54.4 % Lymphocytes (%) (Auto) 28.7 % Monocytes (%) (Auto) 14.3 % Eosinophils (%) (Auto) 1.6 % Basophils (%) (Auto) 1.0 % Neutrophils # (Auto) 5.8 TH/MM3 Lymphocytes # (Auto) 3.0 TH/MM3 Monocytes # (Auto) 1.5 TH/MM3 Eosinophils # (Auto) 0.2 TH/MM3 Basophils # (Auto) 0.1 TH/MM3 CBC Comment DIFF FINAL Differential Comment Urine Opiates Screen NEG Urine Barbiturates Screen NEG Urine Amphetamines Screen NEG Urine Benzodiazepines Screen NEG Urine Cocaine Screen NEG Urine Cannabinoids Screen NEG Sodium Level 138 MEQ/L Potassium Level 3.8 MEQ/L Chloride Level 101 MEQ/L Carbon Dioxide Level 25.3 MEQ/L Anion Gap 12 MEQ/L Blood Urea Nitrogen 7 MG/DL Creatinine 0.85 MG/DL Estimat Glomerular Filtration 97 ML/MIN Rate Random Glucose 162 MG/DL Calcium Level 8.2 MG/DL Total Bilirubin 0.5 MG/DL Aspartate Amino Transf 83 U/L (AST/SGOT) Alanine Aminotransferase 49 U/L (ALT/SGPT) Alkaline Phosphatase 138 U/L Total Protein 9.4 GM/DL Albumin 3.9 GM/DL Ethyl Alcohol Level LESS THAN 3 MG/DL MDM Medical Decision Making Medical Screen Exam Complete: Yes Emergency Medical Condition: Yes Medical Record Reviewed: Yes Differential Diagnosis SUBTHERAPEUTIC SZ V HYPOGLYCEMIA V ICH V ETOH RELATED Narrative Course PATIENT WAS GIVEN ATIVAN AND CEREBYX TO CONTROL SEIZURE. NO FURTHER OR ADDITIONAL SEIZURE EVENTS DURING OBSERVATION PERIOD IN ED. PATIENT WAS ADVISED OF ALL FINDINGS INCLUDING CT AND RECC THAT HE FOLLOW UP WITH [facility] FOR FURTHER TREATMENT. PATIENT VOICED UNDERSTANDING AND ALSO STATED THAT HE IS NOT OUT OF DILANTIN EITHER AND DOESN'T NEED ANY REFILLS Diagnosis Primary Impression: SEIZURES Additional Impression: MULTIPLE FACIAL FRACTURES Referrals: [facility] Disposition: 01 DISCHARGE HOME Condition: Stable Jamari Mosley MD May 04, 2017 02:55
--- NOTE | 2017-05-04 03:13 | RADRPT ---
EXAM DATE/TIME: 05/04/2017 02:50 [facility] COMPARISON: No previous studies available for comparison. INDICATIONS : Seizure. Fall. MEDICAL HISTORY : Seizures SURGICAL HISTORY : Unubtainable. ENCOUNTER: Initial ACUITY: 1 day PAIN SCORE: Non-responsive. LOCATION: Left upper extremity Forearm FINDINGS: No definite fractures, or dislocations are identified. No definite lytic or sclerotic lesion is seen . There are chronic changes involving the medial elbow joint and radiocarpal joints. There is deformi ty of distal humerus probably due to old healed fracture. CONCLUSION: No definite fracture is seen for techniqueRoberto KRoberto Wei MD on May 04, 2017 at 3:11 Board Certified Radiologist. This report was verified electronically.
[2017-05-04 04:05] LABS: ALT (GPT) 49 U/L (12-78); ANION GAP 12 MEQ/L (5-15); AST (GOT) 83 U/L (15-37); BICARBONATE 25.3 MEQ/L (21.0-32.0); BLOOD UREA NITROGEN 7 MG/DL (7-18); CHLORIDE 101 MEQ/L (98-107); GLOMERULAR FILTRATION RATE 97 ML/MIN (>89); POTASSIUM 3.8 MEQ/L (3.5-5.1); SODIUM (NA) 138 MEQ/L (136-145)
[2017-05-04 04:16] VITALS: BP 121/79; PULSE 98; RESP 18; O2SAT 95
--- NOTE | 2017-05-04 05:29 | RADRPT ---
EXAM DATE/TIME: 05/04/2017 04:59 [facility] COMPARISON: CT CERVICAL SPINE W/O CONTRAST, March 15, 2016, 21:41. INDICATIONS : Patient had seizure and fell face first on tile floor. RADIATION DOSE: 23.28 CTDIvol (mGy) MEDICAL HISTORY : Seizures. Traumatic brain injury. SURGICAL HISTORY : Craniotomy. ENCOUNTER: Initial ACUITY: 1 day PAIN SCALE: 0/10 LOCATION: neck TECHNIQUE: Volumetric scanning of the cervical spine was performed. Multiplanar reconstructions in the sagittal, coronal and oblique axial planes were performed. Using automated exposure control and adjustment o f the mA and/or kV according to patient size, radiation dose was kept as low as reasonably achievable to obtain optimal diagnostic quality images. DICOM format image data is available electronically f or review and comparison. FINDINGS: There is slight retrolisthesis C5-6 not significantly changed since 03/2016. No definite fracture is seen for technique. C2-C3: There is no evidence for any significant compromise to the thecal sac, or the exiting nerve roots. N o appreciable thecal sac stenosis is seen. The neural foramina and lateral recess appear patent bila terally. C3-C4: There is no evidence for any significant compromise to the thecal sac, or the exiting nerve roots. N o appreciable thecal sac stenosis is seen. The neural foramina and lateral recess appear patent bila terally. C4-C5: There is no evidence for any significant compromise to the thecal sac, or the exiting nerve roots. N o appreciable thecal sac stenosis is seen. The neural foramina and lateral recess appear patent bila terally. C5-C6: Significant degenerative changes are seen within the disc space and facets. Asymmetrical bulging disc is present with possibly slight left sided broad-based disc protrusion not significantly changed sin ce the prior examination slightly abutting the anterior ramus of the exiting C6 nerve root. There is slight neural foramina compromise on the left due to asymmetrical bulging disc and hypertrophic angel es. C6-C7: There is no evidence for any significant compromise to the thecal sac, or the exiting nerve roots. N o appreciable thecal sac stenosis is seen. The neural foramina and lateral recess appear patent bila terally. C7-T1: There is no evidence for any significant compromise to the thecal sac, or the exiting nerve roots. N o appreciable thecal sac stenosis is seen. The neural foramina and lateral recess appear patent bila terally. CONCLUSION: Degenerative spondylosis C5-6 with slight impingement on the exiting C6 nerve root on the left side d ue to bulging disc and possibly small protrusion not significantly changed. Yunier Wei MD on May 04, 2017 at 5:22 Board Certified Radiologist. This report was verified electronically.
--- NOTE | 2017-05-04 05:34 | RADRPT ---
EXAM DATE/TIME: 05/04/2017 05:01 [facility] COMPARISON: CT BRAIN W/O CONTRAST, May 04, 2017, 2:29. INDICATIONS : Patient had seizure and fell face first on tile floor. RADIATION DOSE: 21.96 CTDIvol (mGy) MEDICAL HISTORY : Seizures. Traumatic brain injury. SURGICAL HISTORY : Craniotomy. ENCOUNTER: Initial ACUITY: 1 day PAIN SCORE: 10/10 LOCATION: facial TECHNIQUE: Volumetric scanning of the facial bones was performed. Using automated exposure control and adjustme nt of the mA and/or kV according to patient size, radiation dose was kept as low as reasonably achiev able to obtain optimal diagnostic quality images. DICOM format image data is available electronicall y for review and comparison. FINDINGS: There is opacification of multiple sinuses including bilateral maxillary and eithmoid air cells part of it is due to chronic sinusitis and partly due to hemorrhage related to multiple fractures. There a re fractures of bilateral nasal bones, bilateral lateral pterygoid plates, bilateral maxillary sinuse s, nasal septum and some of the eithmoid air cells. There is extensive subcutaneous emphysema in the patient's right cheek in addition to masseter space and right infratemporal fossa. There is also smal l fracture of the floor of the middle cranial fossa on the left side. CONCLUSION: Multiple facial bone fractures and small fracture of left temporal bone. Yunier Wei MD on May 04, 2017 at 5:27 Board Certified Radiologist. This report was verified electronically.
[2017-05-04 06:41] VITALS: BP 123/78; PULSE 92; RESP 18; O2SAT 96
[2017-05-04 09:08] VITALS: BP 128/79; PULSE 86; RESP 18; O2SAT 97
--- NOTE | 2017-05-04 11:32 | EKG ---
Date Performed: 05/04/2017 Time Performed: 01:39:14 PTAGE: 46 years EKG: BASELINE ARTIFACT PRESENT. Probable sinus tachycardia ABNORMAL RHYTHM ECG NO PREVIOUS TRACING DOCTOR: Ramírez Rene Interpretating Date/Time 05/04/2017 11:30:59
== END 2017-05-04 09:10 | disposition home or self-care (01) ==
LOC: NEPC 01:28
DX: R56.9 Unspecified convulsions (principal); S00.03XA Contusion of scalp, initial encounter; F17.200 Nicotine dependence, unspecified, uncomplicated; R94.31 Abnormal electrocardiogram [ECG] [EKG]; Z79.899 Other long term (current) drug therapy; X58.XXXA Exposure to other specified factors, initial encounter
CPT/HCPCS: 70450; 70486; 71010; 72125; 73090; 80053; 80307; 85025; 93005; 96365; 96375; 99285; J2060; J7030; Q2009

== ENCOUNTER 2017-06-19 15:48 | Emergency (ER) | payer SELFPAY ==
[~2017-06-19] VITALS: Ht 185.4 cm; Wt 69.0 kg
[2017-06-19 16:03] VITALS: BP 144/94; PULSE 100; RESP 14; TEMP 98.3; O2SAT 93
[2017-06-19] MEDS ORDERED: SODIUM CHLOR 0.9% 1000 ML INJ 1,000 ML IV ONE (16:11)
[2017-06-19] MEDS ORDERED: SODIUM CHLORIDE 0.9% FLUSH 10 ML FLUSH IVF PRN (16:15)
--- NOTE | 2017-06-19 16:34 | PD ---
HPI Chief Complaint: Seizure Time Seen by Provider: 16:04 Travel History International Travel<30 days: No Contact w/Intl Traveler<30days: No Traveled to known affect area: No History of Present Illness HPI The patient is a 47-year-old male who presents to the emergency department via EMS for a seizure. The patient states he apparently had a seizure while lying in bed earlier today that was witnessed by his roommate. The patient does have a history of seizures for the last 3 years, takes Dilantin on a daily basis. However, the patient states he takes the Dilantin only once daily, EMR reveals the patient is supposed to take Dilantin 200 mg twice a day. The patient states the seizure occurred while he was in bed. The patient was recently evaluated in the emergency department in April after a seizure and was noted to have multiple facial fractures. He does have a history of alcohol use, states his last drink of alcohol was 2 days ago, denies alcohol withdrawal seizures. He denies any current headache, chest pain, shortness of breath, nausea, vomiting, or abdominal pain. He denies any focal deficits. The patient does not currently have a primary physician. PFSH Past Medical History Cancer: No Cardiovascular Problems: No Diminished Hearing: No Endocrine: No Genitourinary: No Immune Disorder: No Musculoskeletal: No Neurologic: Yes Respiratory: No Immunizations Current: Yes Seizures: Yes Past Surgical History Neurologic Surgery: Yes (CRANIOTOMY) Other Surgery: Yes Social History Alcohol Use: Yes (4 days per week) Tobacco Use: Yes (1/2 PPD) Substance Use: No Allergies-Medications (Allergen,Severity, Reaction): Coded Allergies: No Known Allergies (Unverified , 06/19/17) Reported Meds & Prescriptions Reported Meds & Active Scripts Active Dilantin (Phenytoin Extended) 100 Mg Cap 200 Mg PO BID Review of Systems Except as stated in HPI: all other systems reviewed are Neg General / Constitutional: No: Fever HENT: No: Headaches, Lightheadedness Cardiovascular: No: Chest Pain or Discomfort Respiratory: No: Shortness of Breath Gastrointestinal: No: Nausea, Vomiting, Abdominal Pain Musculoskeletal: No: Weakness Neurologic: Positive: Seizures, No: Headache Physical Exam Narrative GENERAL: Awake, alert, pleasant 47-year-old male who appears his stated age and is in no acute respiratory distress. SKIN: Focused skin assessment warm and diaphoretic over the neck and head. HEAD: Atraumatic. Normocephalic. EYES: Pupils equal and round. Pupils are 3 mm bilateral and reactive. EOMs are intact. ENT: No nasal bleeding or discharge. Poor dentition. NECK: Trachea midline. No JVD. CARDIOVASCULAR: Regular rate and rhythm. No murmur appreciated. Heart rate in the 90s. RESPIRATORY: No accessory muscle use. Clear to auscultation. Breath sounds equal bilaterally. GASTROINTESTINAL: Abdomen soft, non-tender, nondistended. No rebound tenderness. MUSCULOSKELETAL: No obvious deformities. No clubbing. No cyanosis. Right lower extremity slightly larger than the left lower extremity. NEUROLOGICAL: Awake and alert. No obvious cranial nerve deficits. Motor grossly within normal limits. Normal speech. Oriented 4. Follows commands without difficulty. Nonfocal. PSYCHIATRIC: Appropriate mood and affect; insight and judgment normal. Data Data Last Documented VS Vital Signs Date Time Temp Pulse Resp B/P Pulse Ox O2 Delivery O2 Flow Rate FiO2 06/19/17 16:03 98.3 100 14 144/94 93 Orders Complete Blood Count With Diff (06/19/17 16:11) Alcohol (Ethanol) (06/19/17 16:11) Phenytoin (Dilantin) (06/19/17 16:11) Drug Screen, Random Urine (06/19/17 16:11) Electrocardiogram (06/19/17 ) Blood Glucose (06/19/17 16:11) Ecg Monitoring (06/19/17 16:11) Iv Access Insert/Monitor (06/19/17 16:11) Oximetry (06/19/17 16:11) Comprehensive Metabolic Panel (06/19/17 16:11) Sodium Chlor 0.9% 1000 Ml Inj (Ns 1000 M (06/19/17 16:11) Sodium Chloride 0.9% Flush (Ns Flush) (06/19/17 16:15) Ct Brain W/O Iv Contrast(Rout) (06/19/17 ) MDM Medical Decision Making Medical Screen Exam Complete: Yes Emergency Medical Condition: Yes Medical Record Reviewed: Yes Interpretation(s) EKG reveals normal sinus rhythm with a rate 80. No ischemic changes or ectopy noted. Differential Diagnosis Differential diagnosis includes breakthrough seizure, subtherapeutic Dilantin level, supratherapeutic Dilantin level, hyponatremia, alcohol withdrawal, subdural hemorrhage, intracranial hemorrhage, noncompliance. Narrative Course IV was established, labs are drawn and sent, and the patient was placed on cardiac telemetry monitoring and continuous pulse oximetry monitoring. CT of the brain was obtained. Patient was administered 1 L of IV fluids. The patient was signed out to the oncoming physician at 5 PM. Diagnosis Primary Impression: Seizure Condition: Stable Tyrell Quintero MD Jun 19, 2017 16:34
[2017-06-19 17:32] LABS: BASOPHIL # 0.1 TH/MM3 (0-0.2); BASOPHIL % 0.9 % (0.0-2.0); EOSINOPHIL # 0.1 TH/MM3 (0-0.4); EOSINOPHIL % 1.2 % (0.0-4.0); HEMATOCRIT 47.7 % (39.0-51.0); HEMO FLAGS DIFF FINAL; LYMPH % 16.1 % (9.0-44.0); LYMPHOCYTE # 1.2 TH/MM3 (1.0-4.8); MEAN CELL VOLUME 101.5 FL (80.0-100.0); MEAN CORPUSCULAR HEMOGLOBIN 33.7 PG (27.0-34.0); MEAN CORPUSCULAR HGB CONC 33.2 % (32.0-36.0); MONO % 13.2 % (0.0-8.0); NEUT % 68.6 % (16.0-70.0); PLATELET COUNT 166 TH/MM3 (150-450); RED BLOOD COUNT 4.69 MIL/MM3 (4.50-5.90); RED CELL DISTRIBUTION WIDTH 14.4 % (11.6-17.2); WHITE BLOOD COUNT 7.2 TH/MM3 (4.0-11.0)
--- NOTE | 2017-06-19 17:41 | RADRPT ---
EXAM DATE/TIME: 06/19/2017 17:19 [facility] COMPARISON: CT FACIAL BONES W/O CONTRAST, May 04, 2017, 5:01. INDICATIONS : Multiple seizures for the past week RADIATION DOSE: 31.96 CTDIvol (mGy) MEDICAL HISTORY : Seizures. SURGICAL HISTORY : Craniotomy. ENCOUNTER: Initial ACUITY: 1 week PAIN SCALE: 5/10 LOCATION: Bilateral cranial TECHNIQUE: Multiple contiguous axial images were obtained of the head. Using automated exposure control and adj ustment of the mA and/or kV according to patient size, radiation dose was kept as low as reasonably a chievable to obtain optimal diagnostic quality images. DICOM format image data is available electro nically for review and comparison. FINDINGS: CEREBRUM: The examination demonstrates scattered areas of encephalomalacia involving the orbital frontal portio n of the frontal lobes right greater than left and the anterior aspect of the temporal lobes left gre ater than right. Study would suggest previous brain contusion. There is no acute intracranial hemorrh age. The ventricles are normal in size and configuration. No mass lesion is identified. POSTERIOR FOSSA: The cerebellum and brainstem are intact. The 4th ventricle is midline. The cerebellopontine angle i s unremarkable. EXTRACRANIAL: The visualized portion of the orbits is intact. SKULL: Imaging through the skull demonstrates a fracture involving the left temporal fossa. There is been pr evious craniotomy on the right side. There has been prior fracture of the right mandibular condyle. CONCLUSION: 1. There are scattered areas of encephalomalacia suggesting previous traumatic brain injury. No acute hemorrhage is seen. 2. Post craniotomy changes on the right. 3. Small fracture through the middle cranial fossa on the left. 4. Healed fracture of the right mandibular condyle. Akhil Macario MD on June 19, 2017 at 17:37 Board Certified Radiologist. This report was verified electronically.
[2017-06-19 18:03] LABS: ALT (GPT) 57 U/L (12-78); ANION GAP 13 MEQ/L (5-15); AST (GOT) 85 U/L (15-37); BICARBONATE 24.9 MEQ/L (21.0-32.0); BLOOD UREA NITROGEN 8 MG/DL (7-18); CHLORIDE 102 MEQ/L (98-107); GLOMERULAR FILTRATION RATE 119 ML/MIN (>89); POTASSIUM 4.2 MEQ/L (3.5-5.1); SODIUM (NA) 140 MEQ/L (136-145)
[2017-06-19 18:05] LABS: ALKALINE PHOSPHATASE 139 U/L (45-117); TOTAL BILIRUBIN ADULT 0.4 MG/DL (0.2-1.0)
[2017-06-19 18:06] LABS: ALCOHOL LESS THAN 3 MG/DL (0-5)
[2017-06-19 18:30] VITALS: RESP 22; O2SAT 98
[2017-06-19 18:57] VITALS: BP 136/64; PULSE 70; RESP 15; O2SAT 93
[2017-06-19] MEDS ORDERED: FOSPHENYTOIN INJ 1,000 MGPE in SODIUM CHLORIDE 0.9% INJ 50 ML IV ONE (19:00)
[2017-06-19 19:32] VITALS: BP 171/97; PULSE 85; RESP 16; O2SAT 97
[2017-06-19] MEDS ORDERED: DILA100C PO (19:36)
--- NOTE | 2017-06-19 19:36 | PD ---
Data Data Last Documented VS Vital Signs Date Time Temp Pulse Resp B/P Pulse Ox O2 Delivery O2 Flow Rate FiO2 06/19/17 19:32 85 16 171/97 97 Room Air 06/19/17 18:57 2 06/19/17 16:03 98.3 Orders Complete Blood Count With Diff (06/19/17 16:11) Alcohol (Ethanol) (06/19/17 16:11) Phenytoin (Dilantin) (06/19/17 16:11) Drug Screen, Random Urine (06/19/17 16:11) Electrocardiogram (06/19/17 ) Blood Glucose (06/19/17 16:11) Ecg Monitoring (06/19/17 16:11) Iv Access Insert/Monitor (06/19/17 16:11) Oximetry (06/19/17 16:11) Comprehensive Metabolic Panel (06/19/17 16:11) Sodium Chlor 0.9% 1000 Ml Inj (Ns 1000 M (06/19/17 16:11) Sodium Chloride 0.9% Flush (Ns Flush) (06/19/17 16:15) Ct Brain W/O Iv Contrast(Rout) (06/19/17 ) Fosphenytoin Inj (Cerebyx Inj) (06/19/17 19:00) Labs Laboratory Tests Test 06/19/17 16:20 White Blood Count 7.2 TH/MM3 Red Blood Count 4.69 MIL/MM3 Hemoglobin 15.8 GM/DL Hematocrit 47.7 % Mean Corpuscular Volume 101.5 FL Mean Corpuscular Hemoglobin 33.7 PG Mean Corpuscular Hemoglobin 33.2 % Concent Red Cell Distribution Width 14.4 % Platelet Count 166 TH/MM3 Mean Platelet Volume 8.0 FL Neutrophils (%) (Auto) 68.6 % Lymphocytes (%) (Auto) 16.1 % Monocytes (%) (Auto) 13.2 % Eosinophils (%) (Auto) 1.2 % Basophils (%) (Auto) 0.9 % Neutrophils # (Auto) 5.0 TH/MM3 Lymphocytes # (Auto) 1.2 TH/MM3 Monocytes # (Auto) 1.0 TH/MM3 Eosinophils # (Auto) 0.1 TH/MM3 Basophils # (Auto) 0.1 TH/MM3 CBC Comment DIFF FINAL Differential Comment Sodium Level 140 MEQ/L Potassium Level 4.2 MEQ/L Chloride Level 102 MEQ/L Carbon Dioxide Level 24.9 MEQ/L Anion Gap 13 MEQ/L Blood Urea Nitrogen 8 MG/DL Creatinine 0.71 MG/DL Estimat Glomerular Filtration 119 ML/MIN Rate Random Glucose 162 MG/DL Calcium Level 9.4 MG/DL Total Bilirubin 0.4 MG/DL Aspartate Amino Transf 85 U/L (AST/SGOT) Alanine Aminotransferase 57 U/L (ALT/SGPT) Alkaline Phosphatase 139 U/L Total Protein 8.7 GM/DL Albumin 3.9 GM/DL Phenytoin (Dilantin) Level 1.6 MCG/ML Ethyl Alcohol Level LESS THAN 3 MG/DL MDM Medical Record Reviewed: Yes Supervised Visit with YOVANA: No Narrative Course Please refer to the outgoing provider documentation. CBC & BMP Diagram 06/19/17 16:20 AST 85 Alk phos 139 Alcohol < 3 Dilantin 1.6 Pt reassessed at 7pm and was found resting comfortably on bed. Cerebryx ordered. Dilantin refilled. Necessity of compliance discussed with patient who verbalized understanding. Diagnosis Primary Impression: Seizure Referrals: [facility] Additional Instruction: You have a choice when it comes to health care, and we are glad that you chose [facility]. Hopefully, we have met your expectations on today's visit. You are welcome to return to [facility] at any time, as we are committed to meeting the health care needs of our community. Med/Other Pt SpecificInfo: Prescription(s) given Scripts Phenytoin Extended (Dilantin)100 Mg [id number] Mg PO BID 30 Days Ref 0 Prov:Akhil Garcias MD 06/19/17 Disposition: 01 DISCHARGE HOME Condition: Stable Akhil Garcias MD Jun 19, 2017 19:36
--- NOTE | 2017-06-20 00:32 | EKG ---
Date Performed: 06/19/2017 Time Performed: 16:45:54 PTAGE: 47 years EKG: Sinus rhythm POSSIBLE LEFT ATRIAL ENLARGEMENT POSSIBLE LEFT VENTRICULAR HYPERTROPHY ABNORMAL ECG PREVIOUS TRACING : 05/04/2017 01.39 Compared to the previous tracing, rate has decreased DOCTOR: Rodger Garcias Interpretating Date/Time 06/20/2017 00:31:21
== END 2017-06-19 20:50 | disposition home or self-care (01) ==
LOC: NEPD 15:48
DX: R56.9 Unspecified convulsions (principal)
CPT/HCPCS: 70450; 80053; 80185; 80307; 85025; 93005; 96374; 99284; J7030; Q2009

== ENCOUNTER 2017-08-25 21:19 | Emergency (ER) | payer SELFPAY ==
[~2017-08-25] VITALS: Ht 185.4 cm; Wt 65.0 kg
[2017-08-25 21:26] VITALS: BP 159/86; PULSE 97; RESP 16; TEMP 98.7; O2SAT 99
[2017-08-25] MEDS ORDERED: SODIUM CHLORIDE 0.9% FLUSH 10 ML FLUSH IVF PRN (21:45)
[2017-08-25] MEDS ORDERED: PHENYTOIN INJ 250 MG/5 ML VIAL IV ONE (21:45)
--- NOTE | 2017-08-25 21:48 | PD ---
HPI Chief Complaint: Seizure Time Seen by Provider: 21:42 Travel History International Travel<30 days: No Contact w/Intl Traveler<30days: No Traveled to known affect area: No History of Present Illness HPI 47-year-old male with known seizure disorder treated with Dilantin presents the emergency department via EMS status post tonic clonic seizure while working. Patient states he's been taking his Dilantin 200 mg twice a day regularly and hasn't had a seizure in over 5 months. Patient denies recent alcohol use or other drugs. Patient states he had to get up earlier today the go to work because of bike week and hasn't had much sleep which may have triggered his seizure today. He does have some abrasions to the scalp and face as well as a small superficial bite to the tip of his tongue. Patient also noted to have abrasions to the knuckles of the left hand. He denies headache, dizziness, neck pain, extremity pain, or chest or abdominal pain at this time. He has no known drug allergies. PFSH Past Medical History Cancer: No Cardiovascular Problems: No Diminished Hearing: No Endocrine: No Genitourinary: No Immune Disorder: No Musculoskeletal: No Neurologic: Yes Respiratory: No Immunizations Current: Yes Seizures: Yes Past Surgical History Neurologic Surgery: Yes (CRANIOTOMY) Other Surgery: Yes Social History Alcohol Use: Yes (4 days per week) Tobacco Use: Yes (1/2 PPD) Substance Use: No Allergies-Medications (Allergen,Severity, Reaction): Coded Allergies: No Known Allergies (Unverified , 08/25/17) Reported Meds & Prescriptions Reported Meds & Active Scripts Active Dilantin (Phenytoin Extended) 100 Mg Cap 200 Mg PO BID 30 Days Review of Systems Except as stated in HPI: all other systems reviewed are Neg General / Constitutional: No: Fever Eyes: No: Visual changes HENT: Positive: Other, No: Headaches, Vertigo, Lightheadedness, Sore Throat, Rhinitis, Congestion, Nosebleed, Neck Stiffness, Neck Pain, Masses, Gingival Bleeding, Dental Difficulties (tongue pain), Ear Discharge, Earache Cardiovascular: No: Chest Pain or Discomfort Respiratory: No: Shortness of Breath Gastrointestinal: No: Abdominal Pain Genitourinary: No: Dysuria Musculoskeletal: Positive: Myalgias, No: Arthralgias, Limited ROM, Pain Skin: Positive Lesions (multiple abrasions.), No Rash Neurologic: No: Weakness Psychiatric: No: Depression Endocrine: No: Polydipsia Hematologic/Lymphatic: No: Easy Bruising Physical Exam Narrative GENERAL: Patient is alert and oriented although appears somewhat postictal SKIN: Warm and dry. Multiple abrasions to the upper lateral scalp, tip of the nose, and right cheek. These are minor. No major bleeding is noted. Patient has abrasions to the fourth and fifth knuckle on the left hand. HEAD: Atraumatic. Normocephalic. Mild tenderness at abrasion sites otherwise unremarkable. EYES: Pupils equal and round. No scleral icterus. No injection or drainage. ENT: No nasal bleeding or discharge. Mucous membranes pink and moist. Patient is a small minor bite amber to the anterior left tip of the tongue pharynx is clear otherwise. Airway is patent. NECK: Trachea midline. No bony tenderness or step-off. Range of motion is full and supple without tenderness. CARDIOVASCULAR: Regular rate and rhythm. RESPIRATORY: No accessory muscle use. Clear to auscultation. Breath sounds equal bilaterally. GASTROINTESTINAL: Abdomen soft, non-tender, nondistended. Hepatic and splenic margins not palpable. MUSCULOSKELETAL: Extremities without clubbing, cyanosis, or edema. No obvious deformities. NEUROLOGICAL: Awake and alert. No obvious cranial nerve deficits. Motor grossly within normal limits. Five out of 5 muscle strength in the arms and legs. Normal speech. PSYCHIATRIC: Appropriate mood and affect; insight and judgment normal. Data Data Last Documented VS Vital Signs Date Time Temp Pulse Resp B/P (MAP) Pulse Ox O2 Delivery O2 Flow Rate FiO2 08/25/17 21:26 98.7 97 16 159/86 (110) 99 Orders Orders Oximetry (08/25/17 21:30) Iv Access Insert/Monitor (08/25/17 21:30) Ecg Monitoring (08/25/17 21:30) Oxygen Administration (08/25/17 21:30) Complete Blood Count With Diff (08/25/17 21:30) Comprehensive Metabolic Panel (08/25/17 21:30) Drug Screen, Random Urine (08/25/17 21:30) Phenytoin (Dilantin) (08/25/17 21:33) Blood Glucose (08/25/17 21:33) Sodium Chloride 0.9% Flush (Ns Flush) (08/25/17 21:45) Ct Brain W/O Iv Contrast(Rout) (08/25/17 ) Phenytoin Inj (Dilantin Inj) (08/25/17 21:45) Acetaminophen (Tylenol) (08/25/17 22:00) Labs Laboratory Tests Test 08/25/17 21:20 White Blood Count 4.6 TH/MM3 Red Blood Count 4.21 MIL/MM3 Hemoglobin 13.9 GM/DL Hematocrit 42.1 % Mean Corpuscular Volume 100.0 FL Mean Corpuscular Hemoglobin 33.0 PG Mean Corpuscular Hemoglobin Concent 33.0 % Red Cell Distribution Width 14.4 % Platelet Count 193 TH/MM3 Mean Platelet Volume 7.8 FL Neutrophils (%) (Auto) 55.8 % Lymphocytes (%) (Auto) 21.4 % Monocytes (%) (Auto) 18.9 % Eosinophils (%) (Auto) 2.6 % Basophils (%) (Auto) 1.3 % Neutrophils # (Auto) 2.6 TH/MM3 Lymphocytes # (Auto) 1.0 TH/MM3 Monocytes # (Auto) 0.9 TH/MM3 Eosinophils # (Auto) 0.1 TH/MM3 Basophils # (Auto) 0.1 TH/MM3 CBC Comment DIFF FINAL Differential Comment Blood Urea Nitrogen 8 MG/DL Creatinine 0.79 MG/DL Random Glucose 123 MG/DL Total Protein 8.3 GM/DL Albumin 4.0 GM/DL Calcium Level 9.0 MG/DL Alkaline Phosphatase 132 U/L Aspartate Amino Transf (AST/SGOT) 80 U/L Alanine Aminotransferase (ALT/SGPT) 50 U/L Total Bilirubin 0.7 MG/DL Sodium Level 135 MEQ/L Potassium Level 4.1 MEQ/L Chloride Level 99 MEQ/L Carbon Dioxide Level 26.2 MEQ/L Anion Gap 10 MEQ/L Estimat Glomerular Filtration Rate 105 ML/MIN Phenytoin (Dilantin) Level 4.3 MCG/ML MDM Medical Decision Making Medical Screen Exam Complete: Yes Emergency Medical Condition: Yes Medical Record Reviewed: Yes Differential Diagnosis Seizure disorder. Break through seizure. Minor tongue injury. Abrasions. Narrative Course Labs ordered including blood glucose, CBC, CMP, drug screen, and phenytoin level. CT of the head is ordered. Patient is given a dose of Dilantin 250 mg IV Patient is given Tylenol 650 mg by mouth. CBC is unremarkable CMP shows sodium 135, random glucose 123, AST of 80, alkaline phosphatase 132, total protein is 8.3. Dilantin level is CT scan of the head shows: No acute findings. Postoperative previous right craniotomy. Stable areas of encephalomalacia compared with June 19. Patient is given Dilantin 200 mg 3 times a day for the next 30 days with one refill. Patient is given a work note for tomorrow. Patient follow with his primary care physician as discussed. Diagnosis Primary Impression: Seizure Additional Impression: Subtherapeutic serum dilantin level Referrals: Neurologist Primary Care Physician Patient Instructions: General Instructions, Recurrent Seizures in Adults (ED) Additional Instructions: Patient is given Dilantin 200 mg 3 times a day for the next 30 days with one refill. Patient is given a work note for tomorrow. Patient follow with his primary care physician as discussed. Med/Other Pt SpecificInfo: Prescription(s) given Scripts Phenytoin Extended (Dilantin) 100 Mg Cap 200 MG PO BID for Control Seizures for 30 Days, CAP 0 Refills Prov: Luisito Connelly MD 08/25/17 Disposition: 01 DISCHARGE HOME Condition: Stable Sav Madera Aug 25, 2017 21:48
[2017-08-25 21:57] LABS: AUTOMATED NEUTROPHIL # 2.6 TH/MM3 (1.8-7.7); BASOPHIL # 0.1 TH/MM3 (0-0.2); BASOPHIL % 1.3 % (0.0-2.0); EOSINOPHIL # 0.1 TH/MM3 (0-0.4); EOSINOPHIL % 2.6 % (0.0-4.0); HEMATOCRIT 42.1 % (39.0-51.0); HEMOGLOBIN 13.9 GM/DL (13.0-17.0); LYMPH % 21.4 % (9.0-44.0); MEAN PLATELET VOLUME 7.8 FL (7.0-11.0); MONO % 18.9 % (0.0-8.0); MONOCYTE # 0.9 TH/MM3 (0-0.9); NEUT % 55.8 % (16.0-70.0); PLATELET COUNT 193 TH/MM3 (150-450); RED BLOOD COUNT 4.21 MIL/MM3 (4.50-5.90); RED CELL DISTRIBUTION WIDTH 14.4 % (11.6-17.2); WHITE BLOOD COUNT 4.6 TH/MM3 (4.0-11.0)
[2017-08-25] MEDS ORDERED: ACETAMINOPHEN 325 MG TAB PO ONE (22:00)
[2017-08-25 22:14] LABS: AST (GOT) 80 U/L (15-37); BICARBONATE 26.2 MEQ/L (21.0-32.0); BLOOD UREA NITROGEN 8 MG/DL (7-18); CHLORIDE 99 MEQ/L (98-107); CREATININE 0.79 MG/DL (0.60-1.30); GLOMERULAR FILTRATION RATE 105 ML/MIN (>89); GLUCOSE,RANDOM 123 MG/DL (74-106); SODIUM (NA) 135 MEQ/L (136-145)
[2017-08-25 22:15] LABS: ALT (GPT) 50 U/L (12-78)
[2017-08-25 22:17] LABS: ALKALINE PHOSPHATASE 132 U/L (45-117); TOTAL BILIRUBIN ADULT 0.7 MG/DL (0.2-1.0); TOTAL PROTEIN 8.3 GM/DL (6.4-8.2)
--- NOTE | 2017-08-25 22:54 | RADRPT ---
EXAM DATE/TIME: 08/25/2017 22:14 [facility] COMPARISON: No previous studies available for comparison. INDICATIONS : Seizure. RADIATION DOSE: 56.35 CTDIvol (mGy) MEDICAL HISTORY : Aneurysm, intracranial. SURGICAL HISTORY : Craniotomy. ENCOUNTER: Initial ACUITY: 1 day PAIN SCALE: 5/10 LOCATION: cranial TECHNIQUE: Multiple contiguous axial images were obtained of the head. Using automated exposure control and adj ustment of the mA and/or kV according to patient size, radiation dose was kept as low as reasonably a chievable to obtain optimal diagnostic quality images. DICOM format image data is available electro nically for review and comparison. FINDINGS: No acute findings. Again seen are focal areas of encephalomalacia left temporal lobe inferiorly and i nferior right frontal lobe. Ventricular size stable. No hemorrhage, mass effect or shift. No undersur face. Mucosal thickening the paranasal sinuses. CONCLUSION: 1. No acute findings. Postoperative previous right craniotomy. Stable areas of encephalomalacia ed red with June 19. Artemio Riddle MD on August 25, 2017 at 22:51 Board Certified Radiologist. This report was verified electronically.
[2017-08-25] MEDS ORDERED: DILA100C PO ×2 (22:59→23:13)
[2017-08-25 23:16] VITALS: BP 155/85
--- NOTE | 2017-08-26 13:23 | EKG ---
Date Performed: 08/25/2017 Time Performed: 21:27:43 PTAGE: 47 years EKG: Sinus rhythm ABNORMAL RHYTHM ECG PREVIOUS TRACING : 06/19/2017 16.45 DOCTOR: Dolores Traylor Interpretating Date/Time 08/26/2017 13:58:11
== END 2017-08-25 23:31 | disposition home or self-care (01) ==
LOC: NEPE 21:19
DX: G40.909 Epilepsy, unspecified, not intractable, without status epilepticus (principal); F17.200 Nicotine dependence, unspecified, uncomplicated; Z79.899 Other long term (current) drug therapy
CPT/HCPCS: 70450; 80053; 80185; 85025; 93005; 96374; 99285; J1165

== ENCOUNTER 2017-12-12 21:00 | Emergency (ER) | payer SELFPAY ==
[~2017-12-12] VITALS: Ht 185.4 cm; Wt 67.0 kg
[2017-12-12 21:07] VITALS: BP 144/86; PULSE 102; RESP 16; TEMP 98.6
[2017-12-12] MEDS ORDERED: DILA100C PO (21:14)
[2017-12-12] MEDS ORDERED: SODIUM CHLORIDE 0.9% FLUSH 10 ML FLUSH IVF PRN (21:30)
--- NOTE | 2017-12-12 21:31 | PD ---
HPI Chief Complaint: Seizure Time Seen by Provider: 21:23 Travel History International Travel<30 days: No Contact w/Intl Traveler<30days: No Traveled to known affect area: No History of Present Illness HPI 47-year-old male with history of seizure disorder presents to the emergency department by EMS transport after bystander witnessed seizure. Unknown duration. Patient states he does have a seizure disorder does take Dilantin and has been running out of the medication and trying to spread it out and also admits to alcohol use. Patient states he infrequently has seizure and thinks his last seizure was in August. Patient has had intracranial bleed in the past. Patient admits to alcohol use today. Patient's last tetanus shot he thinks was within the last 5 years. Patient complains of headache but denies any neck pain chest pain back pain abdominal pain or extremity injury. Patient states he did not bite his tongue and did not have bladder or bowel incontinence. Patient denies other concerns or complaints at this time. Patient rates pain as mild. PFSH Past Medical History Narrative Medical Seizure; craniotomy; alcohol use tobacco use; nursing notes reviewed Cancer: No Cardiovascular Problems: No Diminished Hearing: No Endocrine: No Genitourinary: No Immune Disorder: No Musculoskeletal: No Neurologic: Yes Respiratory: No Immunizations Current: Yes Seizures: Yes Past Surgical History Neurologic Surgery: Yes (CRANIOTOMY) Other Surgery: Yes Social History Alcohol Use: Yes (OCCASIONALLY) Tobacco Use: Yes (1/2 PPD) Substance Use: No Allergies-Medications (Allergen,Severity, Reaction): Coded Allergies: No Known Allergies (Unverified Adverse Reaction, Unknown, 12/12/17) Reported Meds & Prescriptions Reported Meds & Active Scripts Active Reported Dilantin (Phenytoin Extended) 100 Mg Cap 150 Mg PO DAILY Review of Systems Except as stated in HPI: all other systems reviewed are Neg General / Constitutional: No: Fever, Chills Eyes: No: Visual changes HENT: Positive: Headaches, No: Neck Stiffness, Neck Pain Cardiovascular: No: Chest Pain or Discomfort Respiratory: No: Shortness of Breath Gastrointestinal: No: Nausea, Vomiting, Abdominal Pain Genitourinary: No: Flank Pain Musculoskeletal: No: Myalgias, Arthralgias Skin: No Rash Neurologic: Positive: Seizures, No: Weakness Psychiatric: No: Anxiety Hematologic/Lymphatic: No: Easy Bruising Physical Exam Narrative GENERAL: Well-developed well-nourished disheveled male in no acute distress or respiratory distress; GCS 15 SKIN: Warm and dry. HEAD: Atraumatic. Normocephalic. Except for right forehead abrasion and hematoma. EYES: Pupils equal and round. Extraocular muscles intact. No scleral icterus. No injection or drainage. ENT: No nasal bleeding or discharge. Mucous membranes pink and moist. Airway is patent. No hemotympanum. NECK: Trachea midline. No JVD. No midline tenderness to direct palpation along the cervical spine no bony step-off. CARDIOVASCULAR: Regular rate and rhythm. Chest wall: Nontender to palpation no ecchymosis or abrasions. RESPIRATORY: No accessory muscle use. Clear to auscultation. Breath sounds equal bilaterally. GASTROINTESTINAL: Abdomen soft, non-tender, nondistended. Hepatic and splenic margins not palpable. MUSCULOSKELETAL: Extremities without clubbing, cyanosis, or edema. No obvious deformities. NEUROLOGICAL: Awake and alert. GCS 15. No obvious cranial nerve deficits. Motor grossly within normal limits. Five out of 5 muscle strength in the arms and legs. Normal speech. PSYCHIATRIC: Appropriate mood and affect; insight and judgment normal. Data Data Last Documented VS Vital Signs Date Time Temp Pulse Resp B/P (MAP) Pulse Ox O2 Delivery O2 Flow Rate FiO2 12/12/17 23:53 82 16 139/88 (105) 98 Room Air 12/12/17 21:07 98.6 Orders Orders Complete Blood Count With Diff (12/12/17 21:23) Alcohol (Ethanol) (12/12/17 21:23) Phenytoin (Dilantin) (12/12/17 21:23) Drug Screen, Random Urine (12/12/17 21:23) Electrocardiogram (12/12/17 ) Ct Brain W/O Iv Contrast(Rout) (12/12/17 ) Blood Glucose (12/12/17 21:23) Ecg Monitoring (12/12/17 21:23) Iv Access Insert/Monitor (12/12/17 21:23) Oximetry (12/12/17 21:23) Comprehensive Metabolic Panel (12/12/17 21:23) Sodium Chloride 0.9% Flush (Ns Flush) (12/12/17 21:30) Ua Includes Microscopic (12/12/17 21:23) ^ Seizure Precautions (12/12/17 21:23) Ondansetron Inj (Zofran Inj) (12/12/17 22:15) Fosphenytoin Inj (Cerebyx Inj) (12/12/17 23:15) Labs Laboratory Tests Test 12/12/17 22:00 White Blood Count 5.8 TH/MM3 Red Blood Count 4.25 MIL/MM3 Hemoglobin 14.8 GM/DL Hematocrit 42.9 % Mean Corpuscular Volume 100.8 FL Mean Corpuscular Hemoglobin 34.9 PG Mean Corpuscular Hemoglobin Concent 34.6 % Red Cell Distribution Width 14.5 % Platelet Count 192 TH/MM3 Mean Platelet Volume 8.5 FL Neutrophils (%) (Auto) 56.9 % Lymphocytes (%) (Auto) 21.0 % Monocytes (%) (Auto) 19.7 % Eosinophils (%) (Auto) 1.5 % Basophils (%) (Auto) 0.9 % Neutrophils # (Auto) 3.3 TH/MM3 Lymphocytes # (Auto) 1.2 TH/MM3 Monocytes # (Auto) 1.1 TH/MM3 Eosinophils # (Auto) 0.1 TH/MM3 Basophils # (Auto) 0.1 TH/MM3 CBC Comment AUTO DIFF Differential Total Cells Counted 100 Neutrophils % (Manual) 56 % Band Neutrophils % 1 % Lymphocytes % 26 % Monocytes % 16 % Neutrophils # (Manual) 3.4 TH/MM3 Metamyelocytes 1 % Differential Comment FINAL DIFF MANUAL Platelet Estimate NORMAL Platelet Morphology Comment NORMAL Urine Color YELLOW Urine Turbidity HAZY Urine pH 5.5 Urine Specific Moore 1.022 Urine Protein 100 mg/dL Urine Glucose (UA) TRACE mg/dL Urine Ketones 10 mg/dL Urine Occult Blood MOD Urine Nitrite NEG Urine Bilirubin NEG Urine Urobilinogen 2.0 MG/DL Urine Leukocyte Esterase NEG Urine RBC 2 /hpf Urine WBC 5 /hpf Urine Bacteria RARE /hpf Urine Mucus FEW /lpf Urine Sperm RARE Blood Urea Nitrogen 8 MG/DL Creatinine 0.88 MG/DL Random Glucose 123 MG/DL Total Protein 8.4 GM/DL Albumin 4.0 GM/DL Calcium Level 8.9 MG/DL Alkaline Phosphatase 123 U/L Aspartate Amino Transf (AST/SGOT) 161 U/L Alanine Aminotransferase (ALT/SGPT) 60 U/L Total Bilirubin 0.6 MG/DL Sodium Level 134 MEQ/L Potassium Level 4.0 MEQ/L Chloride Level 99 MEQ/L Carbon Dioxide Level 19.9 MEQ/L Anion Gap 15 MEQ/L Estimat Glomerular Filtration Rate 93 ML/MIN Urine Opiates Screen NEG Urine Barbiturates Screen NEG Phenytoin (Dilantin) Level LESS THAN 0.4 MCG/ML Urine Amphetamines Screen NEG Urine Benzodiazepines Screen NEG Urine Cocaine Screen NEG Urine Cannabinoids Screen NEG Ethyl Alcohol Level 6 MG/DL MDM Medical Decision Making Medical Screen Exam Complete: Yes Emergency Medical Condition: Yes Medical Record Reviewed: Yes Interpretation(s) EKG: normal sinus rhythm rate [address] elevation or injury pattern change Vital Signs Date Time Temp Pulse Resp B/P (MAP) Pulse Ox O2 Delivery O2 Flow Rate FiO2 12/12/17 21:48 95 Room Air 12/12/17 21:10 102 16 95 Room Air 12/12/17 21:07 98.6 102 16 144/86 (105) Differential Diagnosis Seizure, breakthrough seizure, subtherapeutic anticonvulsant therapy, alcohol use, substance use, Narrative Course IV access obtained patient placed on monitor specimens collected and sent for resulting seizure precautions administered CT brain noncontrast ordered Patient sent for CT noncontrast reveals no bleed or skull fracture Dilantin level is subtherapeutic less than 4 patient given a load of fosphenytoin 1 g Patient reports that he feels well is in need of refill prescription for his Dilantin and voices no other concerns or complaints. Vital signs stable. Blood pressure 138/88 heart rate is 83 sinus rhythm Diagnosis Primary Impression: Seizure Additional Impressions: Subtherapeutic serum dilantin level Medication refill Forehead contusion Minor closed head injury Referrals: [facility] 1 day Patient Instructions: General Instructions Additional Instructions: Fill your prescription for Dilantin and take medication as prescribed Follow-up with primary care provider Follow-up [facility] facility regarding alcohol detox resources Follow head injury precautions 24 hours May use ice intermittently to soft tissue swelling of the forehead abrasion/ contusion Return to the emergency department for any concerns or change in condition Med/Other Pt SpecificInfo: Prescription(s) given Scripts Phenytoin Extended (Dilantin) 100 Mg Cap 100 MG PO TID for Control Seizures, #90 CAP 1 Refill Prov: Brittnee Mccollum MD 12/13/17 Disposition: 01 DISCHARGE HOME Condition: Stable Brittnee Mccollum MD Dec 12, 2017 21:31
[2017-12-12 21:48] VITALS: O2SAT 95
[2017-12-12] MEDS ORDERED: ONDANSETRON HCL 4 MG/2 ML VIAL IV PUSH ONE (22:15)
--- NOTE | 2017-12-12 22:17 | RADRPT ---
EXAM DATE/TIME: 12/12/2017 22:01 [place] COMPARISON: CT BRAIN W/O CONTRAST, August 25, 2017, 22:14. INDICATIONS : Trauma; seizure, fall. RADIATION DOSE: 35.34 CTDIvol (mGy) MEDICAL HISTORY : Seizures. SURGICAL HISTORY : Craniotomy. ENCOUNTER: Initial ACUITY: 1 day PAIN SCALE: 4/10 LOCATION: cranial TECHNIQUE: Multiple contiguous axial images were obtained of the head. Using automated exposure control and adj ustment of the mA and/or kV according to patient size, radiation dose was kept as low as reasonably a chievable to obtain optimal diagnostic quality images. DICOM format image data is available electro nically for review and comparison. FINDINGS: CEREBRUM: The ventricles are normal for age. No evidence of midline shift, mass lesion, hemorrhage or acute in farction. 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 No extra-axial fluid collections are seen. Evidence of previous right-sided craniotomy. POSTERIOR FOSSA: The cerebellum and brainstem are intact. The 4th ventricle is midline. The cerebellopontine angle i s unremarkable. EXTRACRANIAL: The visualized portion of the orbits is intact. There is good position of the right craniotomy flap. SKULL: The calvaria is intact. No evidence of skull fracture. No significant changes compared to the prior study. CONCLUSION: 1. Stable CT scan of the brain compared to 2017. 2. No new or acute changes. Ran Cedeno MD on December 12, 2017 at 22:13 Board Certified Radiologist. This report was verified electronically.
[2017-12-12 22:25] LABS: AUTOMATED NEUTROPHIL # 3.3 TH/MM3 (1.8-7.7); BASOPHIL # 0.1 TH/MM3 (0-0.2); BASOPHIL % 0.9 % (0.0-2.0); EOSINOPHIL # 0.1 TH/MM3 (0-0.4); EOSINOPHIL % 1.5 % (0.0-4.0); HEMATOCRIT 42.9 % (39.0-51.0); HEMOGLOBIN 14.8 GM/DL (13.0-17.0); LYMPHOCYTE # 1.2 TH/MM3 (1.0-4.8); MEAN CELL VOLUME 100.8 FL (80.0-100.0); MEAN CORPUSCULAR HEMOGLOBIN 34.9 PG (27.0-34.0); MEAN CORPUSCULAR HGB CONC 34.6 % (32.0-36.0); MEAN PLATELET VOLUME 8.5 FL (7.0-11.0); MONO % 19.7 % (0.0-8.0); MONOCYTE # 1.1 TH/MM3 (0-0.9); NEUT % 56.9 % (16.0-70.0); PLATELET COUNT 192 TH/MM3 (150-450); RED BLOOD COUNT 4.25 MIL/MM3 (4.50-5.90); RED CELL DISTRIBUTION WIDTH 14.5 % (11.6-17.2); WHITE BLOOD COUNT 5.8 TH/MM3 (4.0-11.0)
[2017-12-12 22:29] LABS: BACTERIA, URINE RARE /hpf; BILIRUBIN, URINE NEG (NEG); BLOOD, URINE MOD (NEG); GLUCOSE,URINE TRACE mg/dL (NEG); KETONE, URINE 10 mg/dL (NEG); MUCUS URINE FEW /lpf (OCC); NITRITE,URINE NEG (NEG); PH, URINE 5.5 (5.0-8.5); SPERM, URINE RARE; URINE COLOR YELLOW (YELLW/STRAW); URINE LEUKOCYTE ESTERASE NEG (NEG)
[2017-12-12 22:42] LABS: ALKALINE PHOSPHATASE 123 U/L (45-117); ALT (GPT) 60 U/L (12-78); PHENYTOIN (DILANTIN) LESS THAN 0.4 MCG/ML (10.0-20.0); TOTAL BILIRUBIN ADULT 0.6 MG/DL (0.2-1.0); TOTAL PROTEIN 8.4 GM/DL (6.4-8.2)
[2017-12-12 22:49] LABS: AST (GOT) 161 U/L (15-37); BICARBONATE 19.9 MEQ/L (21.0-32.0); BLOOD UREA NITROGEN 8 MG/DL (7-18); CALCIUM 8.9 MG/DL (8.5-10.1); CHLORIDE 99 MEQ/L (98-107); CREATININE 0.88 MG/DL (0.60-1.30); GLOMERULAR FILTRATION RATE 93 ML/MIN (>89); GLUCOSE,RANDOM 123 MG/DL (74-106); SODIUM (NA) 134 MEQ/L (136-145)
[2017-12-12 23:14] LABS: BANDS 1 % (0-6); LYMPHOCYTES 26 % (9-44); METAMYELOCYTES 1 % (0-1); MONOCYTES 16 % (0-8); NEUTROPHIL # MANUAL DIFF 3.4 TH/MM3 (1.8-7.7); POLYS (SEG NEUTROPHILS) 56 % (16-70)
[2017-12-12] MEDS ORDERED: FOSPHENYTOIN INJ 1,000 MGPE in SODIUM CHLORIDE 0.9% INJ 50 ML IV ONE (23:15)
[2017-12-12 23:53] VITALS: BP 139/88; PULSE 82; RESP 16; O2SAT 98
[2017-12-13] MEDS ORDERED: DILA100C PO (00:39)
--- NOTE | 2017-12-14 09:20 | EKG ---
Date Performed: 12/12/2017 Time Performed: 21:16:56 PTAGE: 47 years EKG: Sinus rhythm POSSIBLE LEFT VENTRICULAR HYPERTROPHY ABNORMAL ECG Since PREVIOUS TRACING , no significant change noted PREVIOUS TRACIN08/25/2017 21.27 DOCTOR: Rodrigo Browne Interpretating Date/Time 12/14/2017 09:20:17
== END 2017-12-13 01:17 | disposition home or self-care (01) ==
LOC: NEPC 21:00
DX: G40.909 Epilepsy, unspecified, not intractable, without status epilepticus (principal); T42.0X6A Underdosing of hydantoin derivatives, initial encounter; S00.83XA Contusion of other part of head, initial encounter; S09.90XA Unspecified injury of head, initial encounter; R94.31 Abnormal electrocardiogram [ECG] [EKG]; F17.210 Nicotine dependence, cigarettes, uncomplicated; Z91.128 Patient's intentional underdosing of medication regimen for other reason; Z76.0 Encounter for issue of repeat prescription; Z72.89 Other problems related to lifestyle
CPT/HCPCS: 70450; 80053; 80185; 80307; 81001; 85007; 85027; 93005; 96374; 99285; Q2009